=== PATIENT | female | born 1945 | race Caucasian/White ===

== ENCOUNTER 2020-09-07 02:08 | Outpatient (CLI) | payer MEDICARE, SELFPAY ==
[2020-09-07 18:25] LABS: SARS-CoV-2 RNA PCR Negative
== END 2020-09-07 02:09 | disposition home or self-care (01) ==
LOC: ANHCOVIDDT 02:08
PROVIDERS: Visit Provider Internal Medicine Gastroenterology
DX: Z01.812 Encounter for preprocedural laboratory examination (principal); Z20.828 Contact with and (suspected) exposure to other viral communicable diseases
CPT/HCPCS: 87635; C9803; U0003

== ENCOUNTER 2020-09-10 03:10 | Day surgery (SDC) | payer MEDICARE, SELFPAY ==
[2020-09-03 13:19] VITALS: BMI 21.4
[2020-09-10 08:45] VITALS: BP 135/68; PULSE 103; RESP 20; TEMP 36.9; O2SAT 100; BMI 20.9
[2020-09-10] MEDS: LACTATED RINGERS 1,000 ML 150 ML IV CONT (08:57)
--- NOTE | 2020-09-10 09:09 | WPDANESEPPF ---
Anes - Initial Pre Proc Eval Procedure: Operation Date: 09/10/20 09:30 Proposed Procedures p Screening Colonoscopy - Orlando Arreola MD Date/Time: 09/10/20 09:09 Surgeon: Orlando Arreola MD Pre Op Diagnosis: hx of colon polyps Patient Data Age: 75 Gender: F Height: 5 ft 3 in Weight: 53.7 kg Last Vital Signs Temp 98.4 F 09/10/20 08:45 Pulse 103 H 09/10/20 08:45 Resp 20 09/10/20 08:45 BP 135/68 09/10/20 08:45 Pulse Ox 100 09/10/20 08:45 Allergies Allergy/AdvReac Type Severity Reaction Status Date / Time brimonidine [From Combigan] Allergy Mild Itching Verified 09/10/20 08:44 timolol [From Combigan] Allergy Mild Itching Verified 09/10/20 08:44 Home Medications Medication Instructions Recorded Confirmed Type atorvastatin 10 mg PO DAILY 09/03/20 09/03/20 History calcium carbonate [Calcium 600] 600 mg PO DAILY 09/03/20 09/03/20 History dorzolamide 1 drp OPHTHALMIC (EYE) BID 09/03/20 09/03/20 History ergocalciferol (vitamin D2) 1,250 mcg PO DAILY 09/03/20 09/03/20 History hydrochlorothiazide 12.5 mg PO DAILY 09/03/20 09/03/20 History lisinopril 10 mg PO DAILY 09/03/20 09/03/20 History travoprost 1 drp OPHTHALMIC (EYE) HS 09/03/20 09/03/20 History Patient hx anesthesia problems: none Family hx anesthesia problems: none [facility] Past Medical History Medical History (Updated 09/10/20 @ 09:08 by Robin Forbes MD) Hyperlipidemia Hypertension Social History Social History Smoking packs per day: 0.5 Smoking cigarettes per day: 10.0 Years smoked: 5 Smoking pack-years: 2.50 Smoking status: Former smoker Tobacco type: cigarettes Alcohol intake: current Drinks per week: 7 Substance use: never Substance use type: does not use Spiritual care concerns: No Anes - Eval Final PreProcedure Day of Procedure 09/10/20 09:09 Patient weight: normal Heart: regular rate and rhythm Lungs: clear to auscultation Airway: Mallampati scale class II Neurological: alert and oriented Last oral intake: >/= 8 hours ASA classification: II Emergent: no Anesthetic plan: proceed Anesthesia type and monitoring: general GIVS and standard monitoring Informed Consent: The patient's anesthetic plan and its attendant risks and benefits were discussed with the patient/family/POA. Questions were solicited and answers provided to the satisfaction of the patient/family/POA.
--- NOTE | 2020-09-10 09:10 | WPDGICN ---
Assessment and Plan Assessment and plan (1) History of colon polyps: Code(s): Z86.010 - Personal history of colonic polyps Status: Acute Assessment and Plan: Patient has a history of colon polyps and for this reason presents for screening colonoscopy. Additionally she has had some constipation and hemorrhoidal pain. This will be evaluated at time of endoscopy. Fiber supplementation with Benefiber or Metamucil is advised. Milk a magnesia may be of some benefit should she need help with her bowel habits. Further recommendations will be given after endoscopy. GI Consult Note Consult date/time: 09/10/20 09:10 HPI: Angie Love is a 75 year old female Seen in evaluation at the request of Dr. Esteban Mcneil. Patient presents for screening colonoscopy. Patient has a personal history of colon polyps. Her last colonoscopy was 5 years ago at that time no polyps were identified. Since that time patient has had significant constipation particularly over the last 3-4 months. She has occasional rectal pain attributed to hemorrhoids. She denies any bleeding. Her weight has remained stable. Her family history is noncontributory. Review of Systems Review of Systems: All systems reviewed & are unremarkable except as noted in HPI and below PMFSH Past Medical History Medical History (Updated 09/10/20 @ 09:11 by Orlando Arreola MD) Hyperlipidemia Hypertension Social History Social History Smoking packs per day: 0.5 Smoking cigarettes per day: 10.0 Years smoked: 5 Smoking pack-years: 2.50 Smoking status: Former smoker Tobacco type: cigarettes Alcohol intake: current Drinks per week: 7 Substance use: never Substance use type: does not use Spiritual care concerns: No Meds Home Medications and Allergies Home Medications Medication Instructions Recorded Confirmed Type atorvastatin 10 mg PO DAILY 09/03/20 09/03/20 History calcium carbonate [Calcium 600] 600 mg PO DAILY 09/03/20 09/03/20 History dorzolamide 1 drp OPHTHALMIC (EYE) BID 09/03/20 09/03/20 History ergocalciferol (vitamin D2) 1,250 mcg PO DAILY 09/03/20 09/03/20 History hydrochlorothiazide 12.5 mg PO DAILY 09/03/20 09/03/20 History lisinopril 10 mg PO DAILY 09/03/20 09/03/20 History travoprost 1 drp OPHTHALMIC (EYE) HS 09/03/20 09/03/20 History Allergies Allergy/AdvReac Type Severity Reaction Status Date / Time brimonidine [From Combigan] Allergy Mild Itching Verified 09/10/20 08:44 timolol [From Combigan] Allergy Mild Itching Verified 09/10/20 08:44 Vital Signs Vital Signs - 24 hr 09/10/20 08:45 Temperature 98.4 F Pulse Rate 103 H Respiratory Rate 20 Blood Pressure 135/68 Pulse Oximetry 100 Exam Narrative: Exam Narrative: Physical exam reveals patient to be alert. Vital signs stable. HEENT exam unremarkable. Lungs are clear to auscultation and percussion. Heart is without murmur or extra sounds. Abdominal exam bowel sounds are present soft nontender with no organomegaly. Digital external rectal exam is normal.
[2020-09-10 10:12] VITALS: BP 106/59; PULSE 74; RESP 18; O2SAT 100
[2020-09-10 10:22] VITALS: BP 106/62; PULSE 68; RESP 20; O2SAT 100
[2020-09-10 10:32] VITALS: BP 109/61; PULSE 67; RESP 18; O2SAT 100
== END 2020-09-10 10:43 | disposition home or self-care (01) ==
PROVIDERS: PCP Internal Medicine; Visit Provider Internal Medicine Gastroenterology
PROC: 0DJD8ZZ Inspection of Lower Intestinal Tract, Via Natural or Artificial Opening Endoscopic (ICD-10-PCS; CPT 45378; principal; 2020-09-10 09:30)
DX: Z12.11 Encounter for screening for malignant neoplasm of colon (principal); D12.4 Benign neoplasm of descending colon; K57.30 Diverticulosis of large intestine without perforation or abscess without bleeding; K64.8 Other hemorrhoids; I10 Essential (primary) hypertension; E78.5 Hyperlipidemia, unspecified; Z87.891 Personal history of nicotine dependence
CPT/HCPCS: 45385; 88305; J2704; J7120

== ENCOUNTER 2024-04-13 09:02 | Outpatient (CLI) | payer MEDICARE, SELFPAY ==
[2024-04-13 20:02] LABS: Hematocrit 38.5 % (37.0-47.0); Hemoglobin 12.3 g/dL (12.0-15.0); Mean Corpuscular HGB Conc 31.9 g/dl (32-36); Mean Corpuscular Hemoglobin 30.8 pg (26-34); Mean Corpuscular Volume 96.3 fl (80-100); Mean Platelet Volume 9.7 fl (7.4-10.4); Platelet Count Result 300 k/mm3 (150-375); Red Cell Distribution Width 12.4 % (11.5-14.5); White Blood Count 5.6 K/mm3 (4.5-10.0)
[2024-04-13 20:34] LABS: Cholesterol 213 mg/dL (0-200); HDL Direct 73 mg/dL; Triglycerides 97 mg/dL (<150)
[2024-04-13 20:44] LABS: LDL Cholesterol Direct 110 mg/dL
[2024-04-18 10:32] LABS: Vitamin D 1,25 (OH)2 Total 23 pg/mL (18-72); Vitamin D2 1,25 (OH)2 <8 pg/mL; Vitamin D3 1,25 (OH)2 23 pg/mL
== END 2024-04-13 09:03 | disposition home or self-care (01) ==
LOC: ANHGOSHLAB 09:03
PROVIDERS: PCP Internal Medicine; Visit Provider Family Medicine
DX: E55.9 Vitamin D deficiency, unspecified (principal); E78.5 Hyperlipidemia, unspecified; I10 Essential (primary) hypertension; Z79.899 Other long term (current) drug therapy
CPT/HCPCS: 36415; 80061; 82652; 84443; 85027

== ENCOUNTER 2024-08-30 10:19 | Outpatient (CLI) | payer MEDICARE, SELFPAY ==
[2024-08-30 13:58] LABS: Hematocrit 39.3 % (37.0-47.0); Mean Corpuscular HGB Conc 33.1 g/dl (32-36); Mean Corpuscular Hemoglobin 31.8 pg (26-34); Mean Corpuscular Volume 96.1 fl (80-100); Mean Platelet Volume 9.9 fl (7.4-10.4); Platelet Count Result 276 k/mm3 (150-375); Red Blood Count 4.09 M/mm3 (4.2-5.4); Red Cell Distribution Width 12.2 % (11.5-14.5); White Blood Count 5.7 K/mm3 (4.5-10.0)
[2024-08-30 14:37] LABS: Alanine Aminotransferase 37 U/L (6-35); Albumin Level 4.7 g/dL (3.5-5.1); Alkaline Phosphatase 84 U/L (38-126); Anion Gap 9 mmol/L (4-12); Aspartate Amino Transferase 67 U/L (14-36); Bilirubin,Total 0.7 mg/dL (0.2-1.3); Blood Urea Nitrogen 22 mg/dL (7-17); Calcium 9.9 mg/dL (8.4-10.2); Carbon Dioxide 28 mmol/L (22-30); Chloride 102 mmol/L (98-107); Cholesterol 159 mg/dL (0-200); Estimated Glomerular Filt Rate > 60; Glucose 91 mg/dL (65-110); HDL Direct 66 mg/dL; Potassium 3.9 mmol/L (3.4-5.0); Sodium 139 mmol/L (137-145); Triglycerides 73 mg/dL (<150)
[2024-08-30 14:47] LABS: LDL Cholesterol Direct 58 mg/dL
[2024-09-03 09:42] LABS: Vitamin D 1,25 (OH)2 Total 23 pg/mL (18-72); Vitamin D2 1,25 (OH)2 <8 pg/mL; Vitamin D3 1,25 (OH)2 23 pg/mL
== END 2024-08-30 10:20 | disposition home or self-care (01) ==
PROVIDERS: PCP Family Medicine; Visit Provider Family Medicine
DX: E55.9 Vitamin D deficiency, unspecified (principal); E78.5 Hyperlipidemia, unspecified; I10 Essential (primary) hypertension; Z79.899 Other long term (current) drug therapy
CPT/HCPCS: 36415; 80053; 80061; 82652; 84443; 85027

== ENCOUNTER 2025-04-03 09:45 | Outpatient (CLI) | payer MEDICARE, SELFPAY ==
--- OUTSIDE RECORDS SUMMARY | 2025-04-03 09:52 | XMS_ITS | CONTINUITY OF CARE DOCUMENT ---
Author Name anjelica dejesus Address Unknown Organization [facility] Address [address] [place] [address] [address] [place] [address] Phone [phone] Care Team Providers Care Winter Intern Name Role Phone MAXIMO BULLARD MD Unavailable [phone] MAXIMO BULLARD MD Unavailable [phone] INSURANCE PROVIDERS Payer name Policy type / Coverage type [place] red constitution party ID [facility] Other [id number]
--- OUTSIDE RECORDS SUMMARY | 2025-04-03 09:52 | XMS_ITS | Continuity of Care Document ---
Author Organization [facility] Address [address] [place] [address] Phone Care Team Providers Care Diesel Technician Name Role Phone Joie Bro Unavailable Unavailable Advance Directives Directive Yes / No Effective Date File Name No Information Encounters Encounter Description Practice Location Reason(s) For Visit Diagnoses Date Provider Providers Copied on Encounter [facility], [address], [place], [place], [id number], [place] tel:[phone] [facility] No Information 3-200 0 Adali Salter. [address] , [address], [place], [address], [place]. tel:[phone] Family History Family Member Type Diagnosis Age At Onset No Information Payers Payer name Insurance type Covered constitution party ID Authoriza tion(s) No Information Social History Type Description Quantity Date Captured Comments Sex Female Smoking Status No Information Chief Complaint And Reason For Visit No Information Reason For Referral Reason For Referral No Information History Of Present Illness Encounter Date Complaint History Of Prese nt Illness No Information Functional Status Date Functional Assessmen t No Information Instructions Date Instruction Additional Infor mation No Information Assessments Type Assessment Date No Information Patient Care Teams Name Effective Dates (start - stop) Status Members No Information
--- OUTSIDE RECORDS SUMMARY | 2025-04-03 09:52 | XMS_ITS | Referral Summary ---
Author Organization [facility] [address] Address [address] [place] [address] Care Team Providers Care Wallpaper Remover Steam Name Role Phone Tyrell Hector MD Primary Care Provider [phone] Allergies No known active allergies Social History Tobacco Use Types Packs/Day Years Used Date Smoking Tobacco: Never Assessed Personal Safety Answer Date Recorded Getting School Help Needed Not on file 02/06 Comments Unknown Sex and Gender Information Value Date Recorded Sex Assigned at Not on file Legal Sex Female 9:15 AM CDT Gender Identity Not on file Sexual Orientation Not on file Plan of Treatment Not on file Insurance [facility] MEDICARE ADVANTAGE Care Teams Wallpaper Remover Steam Relationship Specialty Start Date End Date Tyrell Hector MD PCP - General Internal Medicine 04/20/19
--- OUTSIDE RECORDS SUMMARY | 2025-04-03 09:52 | XMS_ITS | Data Portability ---
Author Organization [place] - [employer], [facility] Address [address] [place] [address] Care Team Providers Care International Recruiter Name Role Phone CLIFFORD, JUSTO Referring Provider Assessment No assessment recorded. Plan of Treatment Reminders Order Date Submit Date Provider Last Modified By Organization Details Last Modified Time Details Appointments ESTABLISH ED OV 15 2025 01:15P M JUSTO HORTON, DO Not available Not available Not available Lab None recorded. Referral None recorded. Procedures None recorded. Surgeries None recorded. Imaging None recorded. Medication Orders None recorded. Patient TargetsNo targets recorded. Patient Instructions Encounter Date Encounter Id Patient Instructions Last Modified By Organization Details Last Modified Time 12/19/2024 [id number] high cholesterol : care instructions [email or web address] Not available 12/19/2024 15:52:33 We discussed you r health concerns and current medications: - You are currently taking atorvastatin 20 mg for high cholesterol and lisinopril 5 mg for high blood pressure. - You are also using Travatan Z eye drops for glaucoma, prescribed by your hand tapper [facility]. - You are taking a calcium supplement called AlgaeCal and vitamin D. We discussed your osteopenia: - I recommend discontinuing calcium supplements due to the potential risk of arterial hardening. Instead, aim to get 1,200 mg of calcium daily through your diet. I have provided a list of calcium-rich foods. - Continue taking vitamin D to support bone health. - Engage in weight-bearing exercises such as walking, pickleball, and weightlifting to strengthen your bones. You can use hand weights for exercises like bicep curls, tricep kickbacks, and squats. We discussed your recent liver function test results: - Your AST and ALT levels were mildly elevated. You have already stopped consuming alcohol and Tylenol as advised by your previous doctor. - You would like your primary care physician [facility] to monitor your liver function. We discussed your mild bladder incontinence: - Perform Kegel exercises to strengthen your pelvic floor muscles. If the issue worsens, we can refer you to a urogynecologist. We discussed your upcoming medical appointments: - You have a bone density scan scheduled for March [facility] - You will continue to see your primary care physician [facility] for your annual wellness visits and any necessary lab work. We will request your medical records from your primary care physician [facility] to ensure continuity of care. We will see you back in one year unless you need us sooner. If you have any acute issues, please call us. ana Not available 12/19/2024 15:51:20 Reason for Referral None Reported. Problems Name Problem SNOMED Code Status Onset Date Resolution Date Notes Provider Name and Address Organization Details Recorded Time Liver enzymes level above reference range 291480943 Active 025 NAKIA FOY APRN [address], [place], [address], [facility], [facility] 5 15:37:01 Problem Notes None recorded. Procedures Surgical History Date Name Laterality Status Provider Name and Address Organization Details Recorded Time 5 [facility] Older Adults (CO[facility]) completed NAKIA FOY APRN [address], [place], [address], [facility], [facility] 12/19/2024 15:41:51 4 Date of Last Mammogram completed Sandip Vásquez [facility] Physician [facility], [facility] 12/19/2024 15:00:52 Colonoscopy completed Sandip Vásquez [facility] Physician [facility], [facility] 12/19/2024 15:01:02 Tubal ligation completed Sandip Vásquez [facility], [facility] 12/19/2024 15:01:02 Mammogram Screening completed Sandip [facility], [facility] 12/19/2024 15:01:02 Imaging Results None recorded. Procedure Notes None recorded. Medical Equipment None Reported. Allergies Allergen ID Allergen Name Allergen Category Reaction Reaction Severity Criticality Documentation Date Start Date Code Code System Note Provider Name and Address Organization Details Recorded Time 9693439 adhesive tape environme nt,medica tion itching Not available Not available 12/19/2024 [id number] UNK [facility] Medications Name Sig Start Date Stop Date Status Note LastModified by Organization Details LastModified Time atorvastatin 20 mg tablet Take 1 tablet every day by oral route. active Not Available Not Available No t Available calcium 12/19 completed Not Available Not Available Not Available Lipitor 12/19 completed Not Available Not Available Not Available Vitamin D active Not Available Not Lilibeth ilable Not Available lisinopril 5mg active Not Available Not Av ailable Not Available Travatan Z 1 drop at night active Not Available Not Available No t Available Algae Based Calcium active Not Available Not Available Not Available Vitals Date Recorded Body weight Body mass index (BMI) Body height Pain severity - 0-10 verbal numeric rating [Score] - Reported Body temperature Oxygen saturation Oxygen saturation in Arterial blood by Pulse oximetry Heart rate Systolic blood pressure Diastolic blood pressure Provider Name and Address Organization Details Last Updated DateTime 99349.7 9 g 22.8 kg/m2 158.75 cm 0 98.7 [degF] 98 % 98 % 78 /min 118 mm[Hg] 64 mm[Hg] Sandip Vásquez [facility] 15:17:19 Social History Question Answer Notes LastModified by Organizat ion Details LastModified Time Tobacco Smoking Status [facility] 12/19/2024 15:00:59 Do You Have An Advance Directive? No Information not available 12/19/2024 Is Your Home Air Conditioned? Yes [email or web address] Information not available 12/19/2024 Do You Wear A Helmet When Biking? No Information not available 12/19/2024 Is Blood Transfusion Acceptable In An Emergency? Yes [email or web address] Information not available 12/19/2024 What Type Of Diet Are You Following? REGULAR [email or web address] Information not available 12/19/2024 What Is The Highest Grade Or Level Of School You Have Completed Or The Highest Degree You Have Received? [id number] [email or web address] Information not available 12/19/2024 Have There Been Any Changes To Your Family Or Social Situation? No [email or web address] Information not available 12/19/2024 When Did You Quit Smoking? 16+yearssincelsarina sánchez Information not available 12/19/2024 Are There Any Guns Present In Your Home? Yes [email or web address] Information not available 12/19/2024 Which Of Your Hands Is Dominant? Left [email or web address] Information not available 12/19/2024 Where Do You Live? SingleLevelHouse [email or web address] Information not available 12/19/2024 Do You Have A Medical Power Of Annual Giving Manager? No Information not available 12/19/2024 What Is Your Relationship Status? [email or web address] Information not available 12/19/2024 Are You Sexually Active? No [email or web address] Information not available 12/19/2024 Do You Have Smoke And Carbon Monoxide Detectors In Your Home? Yes [email or web address] Information not available 12/19/2024 Are You Passively Exposed To Smoke? No [email or web address] Information not available 12/19/2024 Are There Any Smokers In Your House? No Information not available 12/19/2024 Do You Have Any Dietary Restrictions? No [email or web address] Information not available 12/19/2024 How Many Days In The Past Year Have You Consumed 4 Or More Drinks? 0 [email or web address] Information not available 12/19/2024 Sex: Unknown Functional Status Question Answer Note LastModified by [employer] ion Details LastModified Time Do you use any illicit or recreational drugs? No [email or web address] Information not available 12/19/2024 Do you or have you ever used any other forms of tobacco or nicotine? No [email or web address] Information not available 12/19/2024 What is your level of alcohol consumption? Occasional Information not available 12/19/2024 Do you or have you ever used smokeless tobacco? Never used smokeless tobacco Information not available 12/19/2024 Are you currently employed? No Information not available 12/19/2024 Have you been exposed to chemicals or toxins? No Information not available 12/19/2024 Do you have transportation difficulties? No [email or web address] Information not available 12/19/2024 Are you able to care for yourself? Yes [email or web address] Information n ot available 12/19/2024 What is your exercise level? Moderate [email or web address] Information not available 12/19/2024 Mental Status None recorded. Family History Relationship Description Onset Age of this Age Resolved Age Notes LastModified by Organization Details LastModified Time Mother History of dementia [email or web address] Not available 2024 15:00:48 Mother Basal cell carcinoma of skin Not available 2024 15:00:48 Mother Hypertensive disorder Not available 2024 15:00:48 Mother Heart disease [email or web address] Not available 2024 15:00:48 Mother Seizure [email or web address] Not available 12/19/2024 15:00:48 Paternal Grandfather Heart disease [email or web address] Not available 2024 15:00:48 Medical History Condition Response High blood pressure Y Osteopenia/Osteoporosis Y Allergies (other than meds) Y High Cholesterol Y Colon Polyps Y Gynecological History Statement/Question Response Menses Monthly N STIs/STDs N If Post Menopausal, Age at Menopause 52 Date of Last Mammogram 04/11/2024 Age at First Child 22 Obstetrics History GPAL:G 0 P 0 0 0 0 Immunizations Vaccine Type Date Status Note Provider Nam e and Address Organization Details Recorded Time COVID-19, mRNA, LNP-S, PF, 100 mcg/0.5mL dose or 50 mcg/0.25mL dose 01/23/2021 [facility] 12/19/2024 08:47:03 COVID-19, mRNA, LNP-S, PF, 100 mcg/0.5mL dose or 50 mcg/0.25mL dose 02/20/2021 kylah escobar [facility], [facility] 12/19/2024 08:47:03 COVID-19, mRNA, LNP-S, PF, 100 mcg/0.5mL dose or 50 mcg/0.25mL dose 10/10/2021 [facility]obar [facility] 12/19/2024 08:47:03 Past Encounters Encounter ID Performer Location Encounter Start Date Encounter Closed Date Diagnosis/Indication Diagnosis SNOMED-CT Code Diagnosis ICD10 Code Diagnosis Note [id number] NAKIA FOY APRN MPAnnabella LAZO PCP [address] [place] [address] 12/19/2024 14:57:23 12/19/2024 15:54:32 Liver enzymes level above reference range 864611323 R74.8 - Previous lab results from August showed AST 67 U/L and ALT 37 U/L, both mildly elevated.- Patient has ceased alcohol consumptio n since August and does not take Tylenol.- No current lab work ordered; patient prefers to follow up with Dr. Virgie Helton for monitoring .- Educated patient on potential need for further testing, such as liver ultrasound , if enzyme levels do not normalize. Primary op en angle glaucoma of bilateral eyes 8684107662 H40.1130 - Patient is on Travatan Z (travopros t) eye drops.- Advised to continue current ophthalmol ogic care with her ophthalmol ogist [place].- Patient to notify if any changes in vision occur. Osteopenia 692428295 M85 .80 - Patient has a history of osteopenia and is not currently on Fosamax due to personal preference .- Educated patient on the importance of weight-zane ring exercises to promote bone health.- Provided a list of calcium-ri ch foods and advised against calcium supplement s due to potential arterial hardening. - Encouraged continuati on of Vitamin D supplement ation.- Next DEXA scan scheduled for March, as per the two-year interval. Essential hypertension 15428842 I10 - Patient is on lisinopril , presumed dose 5 mg daily, she does not have a written med list with her- Blood pressure today is 118/64 mmHg, indicating well-contr olled hypertensi on.- Advised patient to confirm the exact dosage of lisinopril and update via the patient portal. Current drinker 740032 F10.90 - Patient has ceased alcohol consumptio n since August.- No signs of alcohol dependence or withdrawal .- Educated patient on the risks of alcohol consumptio n and potential liver damage.- Advised to consider non-alcoho lic alternativ es Genuine st ress incontinence 57781962 N39.3 - Patient reports mild stress incontinen ce starting this summer.- Advised patient to perform Kegel exercises to strengthen the pelvic floor.- Discussed potential referral to a urogynecol ogist if symptoms worsen. Hyperlipidemia 75139801 E78.5 - Patient is on atorvastat in 20 mg daily.- Previous increase from 10 mg to 20 mg due to elevated cholestero l levels.- No current cholestero l levels available; will obtain records from Dr. Virgie Helton.- Advised patient to continue current medication and follow up with primary care for lipid monitoring . Health Concerns Section Related Observation LastModified by Organization Detai ls LastModified Time None Recorded Concern Status LastModified by Organization Details LastModified Time None Recorded Advance Directives Directive N: Payers Insurance Date Sequence Insurance Name Policy Number Policy Aviles Covered Member ID Aviles Member ID Guarantor Name 01/06/2025 1 [employer] (MEDICARE REPLACEMENT PPO) [id number] Hilary Pile [id number] Hilary Pile 01/06/2025 1 [employer] Hilary Pile [id number] Hilary Pile Notes Date Note Type Note Provider Name and Address Organization Details Recorded Time 12/19/2024 text/html The patient is a 79-year-old female with a history of HTN, HLD, glaucoma, and osteopenia, presenting to establish care. The patient is currently under the care of Dr. Virgie Helton in [place] and is seeking to establish care locally for the months she resides here. She is on atorvastatin 20 mg for HLD, which was increased from 10 mg due to elevated cholesterol levels. She is also on lisinopril 5 mg for HTN. For glaucoma, she uses Travatan Z eye drops and another unspecified eye drop. She is taking vitamin D and a calcium supplement called AlgaeCal for osteopenia, but has not started Fosamax as recommended by her PCP. She denies any history of fractures. She has lost 1 inch in height, now measuring 5'2.5 . She is due for a bone density scan in March. She reports mild bladder incontinence that began this summer, describing it as a messy flow. She denies any concerns about her vision and does not wear glasses or contacts. She recently got hearing aids this summer. She describes her physical activity level as a little more than moderate. She has a family history of dementia, with her mother being affected. She quit smoking approximately 50 years ago, but was exposed to secondhand smoke from her until 12 years ago. She reports elevated liver enzymes in her last blood work in August, with AST at 67 and ALT at 37. She was advised to stop consuming alcohol and Tylenol, although she denies taking Tylenol. She was drinking 2 glasses of wine daily but has since stopped in August without experiencing withdrawal symptoms. She prefers to have her labs monitored by her PCP in [place] QUALITY MEASURE QUESTIONNAIRE Has the Patient had a fracture in the last year No Has the Patient had a bone density testing performed before Yes Has the Patient been diagnosed as having osteoporosis No Imported from [facility] on 12/19/2024 NAKIA FOY, CARBON FURNACE OPERATOR HELPER [address], [place], [address], [facility], [facility] 12/19/2024 15:52:36 OBGyn Episode No OBEpisode recorded.
--- OUTSIDE RECORDS SUMMARY | 2025-04-03 09:52 | XMS_ITS | Clinical Summary ---
Author Organization [facility] Address [address] [place] [address] Care Team Providers Care Windows Mobile Developer Name Role Phone Esteban Fisher MD Primary Care Provider [phone] Source Comments [facility],non-[facility] Affiliates and Associated Physician Practices is amultiple site organization consisting of ambulatory clinics and hospital sitesin [place], [place], [place] and [place]. This disclosure is being madepursuant to the Care Everywhere program and may not contain all information available regarding this patient. Last updated 18.[facility] [place] Allergies Active Allergy Reactions Criticality Noted Date Comments Brimonidine Tartrate-Timolol Itching Low 015 Active Problems Problem Noted Date Diagnosed Date Basal cell carcinoma of skin 07/03/2015 Basal cell carcinoma of skin of other parts of f janelle 06/26/2015 Social History Tobacco Use Types Packs/Day Years Used Date Smoking Tobacco: Former Alcohol Use Standard Drinks/Week Comments Yes 0 (1 standard drink = 0.6 oz pur e alcohol) Comments Unknown Sex and Gender Information Value Date Recorded Sex Assigned at Not on file Legal Sex Female 5:38 PM [employer] Gender Identity Not on file Sexual Orientation Not on file Last Filed Vital Signs Vital Sign Reading Time Taken Comments Blood Pressure 140/80 07/03/2015 11:34 AM CDT Pulse 71 07/03/2015 11:34 AM CDT Temperature - - Respiratory Rate - - Oxygen Saturation 100% 07/03/2015 11:34 AM CDT Inhaled Oxygen Concentration - - Weight 58.1 kg (128 lb) 07/03/2015 8:33 AM CDT Height 160 cm (5' 3 ) 07/03/2015 8:33 AM CDT Body Mass Index 22.67 07/03/2015 8:33 AM CDT Plan of Treatment Health Maintenance Due Date Last Done Comments BONE DENSITY TESTING 1945 HEPATITIS C SCREENING 05/03/1965 DTAP/TDAP/TD VACCINES (1 - Tdap) 1966 PNEUMOCOCCAL VACCINE 50+ (1 of 1 - PCV) 1997 ZOSTER VACCINE (1 of 2) 1997 Respiratory Syncytial Virus (RSV) Vaccine Pt: or over 60 yrs (1 - 1-dose 75+ series) 2022 COVID-19 VACCINE ( - 2023-2 5 season) 2024 DEPRESSION SCREENING 11/23/2024 INFLUENZA VACCINE (Season Ended) 2025 HEPATITIS B VACCINE Aged Out No longe r eligible based on patient's age to complete this topic HIB VACCINE Aged Out No longer eligi ble based on patient's age to complete this topic HPV VACCINE Aged Out No longer eligi ble based on patient's age to complete this topic MENINGOCOCCAL (Group B) VACC INE SHARED DECISION-MAKING Aged Out No longer eligibl e based on patient's age to complete this topic MENINGOCOCCAL GROUPS A/C/Y/W VACCINE Aged Out No longer eligible b ased on patient's age to complete [place] [address] [facility] MANAGED MEDICARE ADV Care Teams Windows Mobile Developer Relationship Specialty Start Date End Date Esteban Fisher MD [facility] - General 02/28/14
--- OUTSIDE RECORDS SUMMARY | 2025-04-03 09:52 | XMS_ITS | Data Portability ---
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 Name Role Phone CATRACHITA HECTOR Primary Care Provider Assessment Encounter Date Assessment Date Assessment LastModified by Organization Details LastModified Time 04/02/2023 04/02/2023 Diagnosis in assessment plan have been discussed Medicare annual wellness is been completed Bone density ordered Continue current therapy Follow-up in 6 months [email or web address] Not available 04/04/2023 15:48:32 09/10/2023 09/10/2023 Will continue current therapy she is going to [place] for about 6 months she will make sure that she is taking enough calcium and vitamin-D pros and cons of Prolia pros and cons of treating and not treating osteopenia discussed progression to fractures that could be debilitating follow-up with me in 6 months advised to keep up-to-date on immunizations and screening [email or web address] Not available 09/10/2023 21:17:58 Plan of Treatment Reminders Order Date Submit Date Provider Last Modified By Organization Details Last Modified Time Details Appointments None recorded. Lab CMP, serum or plasma 2022 023 MITESH Not available 19:52:02 lipid panel, serum 2022 023 MITESH Not available 19:52:06 CBC w/ auto diff 2022 023 MITESH Not available 18:27:37 vitamin D, 25-hydroxy , total, serum 2022 023 [email or web address] Not available 4 18:33:01 CBC w/ auto diff 2022 023 MITESH Not available 3 12:42:12 lipid panel, serum 2022 023 MITESH Not available 3 13:02:23 CMP, serum or plasma 2022 023 MITESH Not available 3 13:02:29 Referral None recorded. Procedures None recorded. Surgeries None recorded. Imaging MAMMO, screening, digital, bilateral 2022 023 [email or web address] Not available 4 11:09:34 bone density 2022 023 [email or web address] Not available 3 15:39:59 Medication Orders None recorded. Patient TargetsNo targets recorded. Patient Instructions Encounter Date Encounter Id Patient Instructions Last Modified By Organization Details Last Modified Time 04/02/2023 [id number] dementia rating scale-2* [email or web address] Not available 04/02/2023 11:29:35 alcohol misuse* [email or web address] Not available 04/02/2023 11:29:35 depression screening* [email or web address] Not available 04/02/2023 11:29:35 multi-dimensiona l health assessment questionnaire* Not available 04/02/2023 11:29:35 Personalized [facility] lt Plan and Screening Recommendations Advance Directives - Do you have one? No You have indicated that you are capable of preparing your advance care directive Advance Directives - Do we have your advance directive on file in your health record? No, please bring in a copy at your earliest convenience Primary Prevention/Interven tion (prevents or decreases the chance of common diseases from occurring) Smoking Risk: Non Smoker Alcohol Misuse Screening: Positive Refer to attached alcohol cessation handout Refer to attached handout and prescription will be sent to pharmacy Decrease alcohol intake to 1 or less servings per day Continue to consider stopping alcohol and call if we can assist you Weight: Appropriate Physical activity: Appropriate physical activity Nutrition: Good Fall Risk (screened today): Low Vaccines Pneumococcal: Ordered Recommended today Influenza: Your next one in the fall of this year Chronic Disease Risks Stroke: Low Risk Intermediate Risk Heart Attack: Low risk Intermediate Risk Clogging of the Arteries: Low risk Intermediate Risk Diabetes: Low Risk I have no recommendations Secondary Prevention/Interven tion (detects treatable diseases before they may cause symptoms, disability, or ) Breast Cancer Screening with mammogram: Your next mammogram: Ordered Recommended today Cervical/Uterine/Ov douglas Cancer Screening: No screening necessary Osteoporosis Screening: Your next DEXA in: Ordered Recomme nded today Date Screening Last Performed: Colon Cancer Screening: Colonoscopy Date Screening Last Performed: Eye Disease Screening: Dementia Risk: Low I have no recommendations Depression Screening: Negative Not available 04/02/2023 10:58:38 Reason for Referral None Reported. Results Created Date Observation Date Name Description Value Unit Range Abnormal Flag Note LastModifiedBy Organization Detail LastModifiedTime 09/05/2009/05/2021 VITAM IN D 25-HY DROXY [id number] 43.4 NG/mL 30-100 Vitam in D Statu s: Defic ient: <20 ng/mL Insuf ficie nt: 20-29 ng/mL Suffi cient : 30-10 0 ng/mL Not Available [facility] (Lab) [address] [place], [address], 09/05/2021 19:47:25 09/05/2009/05/2021 LIPID PANEL cholesterol 169 mg/dL 140-19 9 NIH NEGRO NSUS RECOM MENDA TION FOR TANNA STERO L: ADULT CHILD LOW RISK: <200 <170 BORDE RLINE : <200- 239 ----- HIGH RISK: >240 >200 Not Available [facility] (Lab) [address] [place], [address], 09/05/2021 19:37:11 09/05/2009/05/2021 LIPID PANEL triglyceride s 82 mg/dL 0-150 NIH NEGRO NSUS REPOR T RECOM MENDA TION FOR TRIGL YCERI VIVEK: ADULT CHILD LOW RISK: <150 ----- BODER LINE: 150-1 99 ----- HIGH RISK: >200 ----- Not Available [facility] (Lab) [address] [place], [address], 09/05/2021 19:37:11 10/14/20 21 09/05/2021 LIPID PANEL HDL cholesterol 80 mg/dL 40- Not Available [facility] (Lab) [address] [place], [address], 09/05/2021 19:37:11 09/05/20 21 09/05/2021 LIPID PANEL LDL cholesterol, calculated 73 mg/dL 0-130 NIH NEGRO NSUS REPOR T RECOM MENDA TIONS FOR LDL: ADULT CHILD LOW RISK <130 <110 (OPTI MAL LDL) <100 ----- BORDE RLINE : 130-1 59 ----- HIGH RISK: >160 >130 A TRIGL YCERI DE RESUL T >400 INVAL IDATE S THE CALCU LATIO N FOR LDL FRACT IONAT ION - THE LDL RESUL T WILL NOT BE REPOR [place]. Not Available [facility] (Lab) [address] [place], [address], 09/05/2021 19:37:11 09/05/2009/05/2021 COMPR EHENS MENDY METAB OLIC PANEL sodium 140 mmol/ L 137-14 5 Not Available [facility] (Lab) [address] [place], [address], 09/05/2021 19:37:06 09/05/20 21 09/05/2021 COMPR EHENS MENDY METAB OLIC PANEL potassium 4.6 mmol/ L 3.5-5. 1 Not Available [facility] (Lab) [address] [place], [address], 09/05/2021 19:37:06 09/05/20 21 09/05/2021 COMPR EHENS MENDY METAB OLIC PANEL chloride 107 mmol/ L 98-107 Not Available [facility] (Lab) [address] [place], [address], 09/05/2021 19:37:06 09/05/20 21 09/05/2021 COMPR EHENS MENDY METAB OLIC PANEL carbon dioxide 25 mmol/ L 22-30 Not Available [facility] (Lab) [address] [place], [address], 09/05/2021 19:37:06 09/05/2009/05/2021 COMPR EHENS MENDY METAB OLIC PANEL agap 12.6 mmol/ L 14-22 low Not Available [facility] (Lab) [address] [place], [address], 09/05/2021 19:37:06 09/05/2009/05/2021 COMPR EHENS MENDY METAB OLIC PANEL glucose 90 mg/dL 70-99 Not Available [facility] (Lab) [address] [place], [address], 09/05/2021 19:37:06 09/05/2009/05/2021 COMPR EHENS MENDY METAB OLIC PANEL BUN 25 mg/dL 8-19 high Not Available [facility] (Lab) [address] [place], [address], 09/05/2021 19:37:06 09/05/2009/05/2021 COMPR EHENS MENDY METAB OLIC PANEL creatinine 0.83 mg/dL 0.66-1 .25 Not Available [facility] (Lab) [address] [place], [address], 09/05/2021 19:37:06 09/05/2009/05/2021 COMPR EHENS MENDY METAB OLIC PANEL GFR >60 Refer ence Range : [place] ge GFR Healt hy Adult : >60 mL/mi n/1.7 3 m2 Chron ic Kidne y Disea se: 15-60 mL/mi n/1.7 3 m2 Kidne y Failu re: <15/m L/min /1.73 m2 www.n iddk. nih.g ov MDRD study equat ion hasn' t been valid ated in child aissatou <18 yrs of age, pregn ant women , the elder ly >85 yrs of age, or in some racia l or ethni c subgr oups, suc as Hispa nics. Outsi de the valid ated rafael eters , estim ated GFR is less accur ate requi ring clini mercedes judgm ent on a case by case basis . Clini merceeds inter preta tion for other races and ages must be made by the clini brett . Futhe rmore , any of th e limit ation s with the use of serum creat inine relat ed to nutri sandrita l statu s o r medic ation usage hasn' t accou nted for the MDRD Study equat ion. For perso ns < 18 yrs of age, a pedia tric GFR calcu lator can be locat ed on the [facility] websi te: https ://aashish cervantes.kevin biggs.o jonny/pr ofess ional s/kdo qi/gf r_cal culat or Not Available [facility] (Lab) [address] [place], [address], 09/05/2021 19:37:06 09/05/2009/05/2021 COMPR EHENS MENDY METAB OLIC PANEL alkaline phosphatase 60 U/L 38-126 Not Available [facility] (Lab) [address] [place], [address], 09/05/2021 19:37:06 09/05/2009/05/2021 COMPR EHENS MENDY METAB OLIC PANEL alanine aminotransfe rase 27 U/L 0-35 Not Available [facility] (Lab) [address] [place], [address], 09/05/2021 19:37:06 09/05/20 21 09/05/2021 COMPR EHENS MENDY METAB OLIC PANEL aspartate aminotransfe rase 35 U/L 15-37 Not Available [facility] (Lab) [address] [place], [address], 09/05/2021 19:37:06 09/05/20 21 09/05/2021 COMPR EHENS MENDY METAB OLIC PANEL bilirubin, total 0.40 mg/dL 0.20-1 .30 Not Available [facility] (Lab) [address] [place], [address], 09/05/2021 19:37:06 09/05/20 21 09/05/2021 COMPR EHENS MENDY METAB OLIC PANEL calcium 10.1 mg/dL 8.4-10 .2 Not Available [facility] (Lab) [address] [place], [address], 09/05/2021 19:37:06 09/05/20 21 09/05/2021 COMPR EHENS MENDY METAB OLIC PANEL total protein 7.3 g/dL 6.3-8. 2 Not Available [facility] (Lab) [address] [place], [address], 09/05/2021 19:37:06 09/05/20 21 09/05/2021 COMPR EHENS MENDY METAB OLIC PANEL albumin 4.5 g/dL 3.0-4. 4 high Not Available [facility] (Lab) [address] [place], [address], 09/05/2021 19:37:06 09/05/20 21 09/05/2021 COMPR EHENS MENDY METAB OLIC PANEL globulin 2.8 g/dL 2.6-4. 2 Not Available [facility] (Lab) [address] [place], [address], 09/05/2021 19:37:06 09/05/20 21 09/05/2021 COMPR EHENS MENDY METAB OLIC PANEL A/G ratio 1.6 ratio 1.0-2. 0 Not Available [facility] (Lab) [address] [place], [address], 09/05/2021 19:37:06 09/05/20 21 09/05/2021 CBC/C OMPLE TE BLD COUNT W/DIF F white blood cells 5.6 x10'3 /uL 4.2-10 .8 Not Available [facility] (Lab) [address] [place], [address], 09/05/2021 13:07:00 09/05/2009/05/2021 CBC/C OMPLE TE BLD COUNT W/DIF F red blood cells 3.95 x10'6 /uL 3.80-5 .20 Not Available [facility] (Lab) [address] [place], [address], 09/05/2021 13:07:00 09/05/2009/05/2021 CBC/C OMPLE TE BLD COUNT W/DIF F hemoglobin 12.6 g/dL 12.0-1 5.6 Not Available [facility] (Lab) [address] [place], [address], 09/05/2021 13:07:00 09/05/2009/05/2021 CBC/C OMPLE TE BLD COUNT W/DIF F hematocrit 38.1 % 35.7-4 5.7 Not Available [facility] (Lab) [address] [place], [address], 09/05/2021 13:07:00 09/05/2009/05/2021 CBC/C OMPLE TE BLD COUNT W/DIF F mean red cell volume 96.5 fL 82.0-9 9.0 Not Available [facility] (Lab) [address] [place], [address], 09/05/2021 13:07:00 09/05/2009/05/2021 CBC/C OMPLE TE BLD COUNT W/DIF F mean red cell hemoglobin 31.9 pg 27.0-3 3.0 Not Available [facility] (Lab) [address] [place], [address], 09/05/2021 13:07:00 09/05/20 21 09/05/2021 CBC/C OMPLE TE BLD COUNT W/DIF F mean RBC HGB concentratio n 33.1 g/dL 31.0-3 6.0 Not Available [facility] (Lab[facility] [address] [facility] [place], [address], 09/05/2021 13:07:00 09/05/2009/05/2021 CBC/C OMPLE TE BLD COUNT W/DIF F red cell distribution width 12.6 % 11.8-1 5.5 Not Available [facility] (Lab) [address] [facility] [place], [address], 09/05/2021 13:07:00 09/05/2009/05/2021 CBC/C OMPLE TE BLD COUNT W/DIF F platelets 235 x10'3 /uL 150-40 0 Not Available [facility] (Lab) [address] [place], [address], 09/05/2021 13:07:00 09/05/2009/05/2021 CBC/C OMPLE TE BLD COUNT W/DIF F mean platelet volume 10.0 fL 9.0-12 .4 Not Available [facility] (Lab) [address] [place], [address], 09/05/2021 13:07:00 09/05/2009/05/2021 CBC/C OMPLE TE BLD COUNT W/DIF F neutrophils 44.6 % 39.0-7 2.0 Not Available [facility] (Lab) [address] [place], [address], 09/05/2021 13:07:00 09/05/2009/05/2021 CBC/C OMPLE TE BLD COUNT W/DIF F lymphocytes 39.7 % 16.0-4 7.0 Not Available [facility] (Lab) [address] [place], [address], 09/05/2021 13:07:00 09/05/2009/05/2021 CBC/C OMPLE TE BLD COUNT W/DIF F monocytes 8.3 % 5.0-12 .0 Not Available [facility] (Lab) [address] [place], [address], 09/05/2021 13:07:00 09/05/2009/05/2021 CBC/C OMPLE TE BLD COUNT W/DIF F eosinophils 5.6 % 1.0-7. 0 Not Available [facility] (Lab) [address] [place], [address], 09/05/2021 13:07:00 09/05/2009/05/2021 CBC/C OMPLE TE BLD COUNT W/DIF F basophils 1.4 % 0.0-2. 0 Not Available [facility] (Lab) [address] [place], [address], 09/05/2021 13:07:00 09/05/2009/05/2021 CBC/C OMPLE TE BLD COUNT W/DIF F immature granulocytes 0.4 % 0.00-0 .50 Not Available [facility] (Lab) [address] [place], [address], 09/05/2021 13:07:00 09/05/2009/05/2021 CBC/C OMPLE TE BLD COUNT W/DIF F neutrophils, absolute count 2.48 x10'3 /uL 1.5-8. 0 Not Available [facility] (Lab) [address] [place], [address], 09/05/2021 13:07:00 09/05/2009/05/2021 CBC/C OMPLE TE BLD COUNT W/DIF F lymphocytes, absolute count 2.21 x10'3 /uL 1.07-3 .43 Not Available [facility] (Lab) [address] [place], [address], 09/05/2021 13:07:00 09/05/2009/05/2021 CBC/C OMPLE TE BLD COUNT W/DIF F monocytes, absolute count 0.46 x10'3 /uL 0.29-0 .99 Not Available [facility] (Lab) [address] [place], [address], 09/05/2021 13:07:00 09/05/2009/05/2021 CBC/C OMPLE TE BLD COUNT W/DIF F eosinophils, absolute count 0.31 x10'3 /uL 0.02-0 .53 Not Available [facility] (Lab) [address] [place], [address], 09/05/2021 13:07:00 09/05/2009/05/2021 CBC/C OMPLE TE BLD COUNT W/DIF F basophils, absolute count 0.08 x10'3 /uL 0.01-0 .08 Not Available [facility] (Lab) [address] [place], [address], 09/05/2021 13:07:00 09/05/2009/05/2021 CBC/C OMPLE TE BLD COUNT W/DIF F immature granulocytes ,absolute 0.02 x10'3 /uL 0.00-0 .05 Not Available [facility] (Lab) [address] [place], [address], 09/05/2021 13:07:00 09/05/2009/05/2021 CBC/C OMPLE TE BLD COUNT W/DIF F nucleated red blood cells 0.0 % -0 Not Available [facility] (Lab) [address] [place], [address], 09/05/2021 13:07:00 09/05/2009/05/2021 CBC/C OMPLE TE BLD COUNT W/DIF F NRBC# 0.00 x10'3 /uL Not Available [facility] (Lab) [address] [place], [address], 09/05/2021 13:07:00 04/11/20 22 04/11/2022 VITAM IN D 25-HY DROXY [id number] 51.6 NG/mL 30-100 Vitam in D Statu s: Defic ient: <20 ng/mL Insuf ficie nt: 20-29 ng/mL Suffi cient : 30-10 0 ng/mL Not Available [facility] (Lab) [address] [place], [address], 04/11/2022 19:16:46 04/11/20 22 04/11/2022 COMPR EHENS MENDY METAB OLIC PANEL sodium 139 mmol/ L 137-14 5 Not Available [facility] (Lab) [address] [place], [address], 04/11/2022 18:57:20 04/11/20 22 04/11/2022 COMPR EHENS MENDY METAB OLIC PANEL potassium 3.9 mmol/ L 3.5-5. 1 Not Available [facility] (Lab) [address] [place], [address], 04/11/2022 18:57:20 04/11/20 22 04/11/2022 COMPR EHENS MENDY METAB OLIC PANEL chloride 105 mmol/ L 98-107 Not Available [facility] (Lab) [address] [place], [address], 04/11/2022 18:57:20 04/11/20 22 04/11/2022 COMPR EHENS MENDY METAB OLIC PANEL carbon dioxide 27 mmol/ L 22-30 Not Available [facility] (Lab) [address] [place], [address], 04/11/2022 18:57:20 04/11/20 22 04/11/2022 COMPR EHENS MENDY METAB OLIC PANEL anion gap 10.9 mmol/ L 14-22 low Not Available [facility] (Lab) [address] [place], [address], 04/11/2022 18:57:20 04/11/20 22 04/11/2022 COMPR EHENS MENDY METAB OLIC PANEL glucose 94 mg/dL 70-99 Not Available [facility] (Lab) [address] [place], [address], 04/11/2022 18:57:20 04/11/20 22 04/11/2022 COMPR EHENS MENDY METAB OLIC PANEL BUN 19 mg/dL 8-19 Not Available [facility] (Lab) [address] [place], [address], 04/11/2022 18:57:20 04/11/20 22 04/11/2022 COMPR EHENS MENDY METAB OLIC PANEL creatinine 0.82 mg/dL 0.66-1 .25 Not Available [facility] (Lab) [address] [place], [address], 04/11/2022 18:57:20 04/11/20 22 04/11/2022 COMPR EHENS MENDY METAB OLIC PANEL GFR >60 Refer ence Range : [place]os[place] ge GFR Healt hy Adult : >60 mL/mi n/1.7 3 m2 Chron ic Kidne y Disea se: 15-60 mL/mi n/1.7 3 m2 Kidne y Failu re: <15/m L/min /1.73 m2 www.n iddk. nih.g ov The MDRD study equat ion has not been valid ated in child aissatou <18 years of age; pregn ant women ; the elder ly >85 years of age; or in some racia l or ethni c subgr oups, such as Hispa nics. Outsi de the valid ated rafael eters , estim ated GFR is less accur ate, requi ring clini mercedes judgm ent on a case- by-ca se basis . Clini mercedes inter preta tion for other races and ages must be made by the clini brett. The MDRD study equat ion has not been valid ated for the evalu ation of serum creat inine relat ed to nutri sandrita l statu s or medic ation usage . For perso ns <18 years of age, a pedia tric GFR calcu lator is avail able on the [facility] websi te: https ://aashish biggs.o jonny/odette moonal s/kdo qi/gf r_cal culat or Not Available [facility] (Lab) [address] [place], [address], 04/11/2022 18:57:20 04/11/20 22 04/11/2022 COMPR EHENS MENDY METAB OLIC PANEL alkaline phosphatase 61 U/L 38-126 Not Available [facility] (Lab) [address] [place], [address], 04/11/2022 18:57:20 04/11/20 22 04/11/2022 COMPR EHENS MENDY METAB OLIC PANEL alanine aminotransfe rase 23 U/L 0-35 Not Available [facility] (Lab) [address] [place], [address], 04/11/2022 18:57:20 04/11/20 22 04/11/2022 COMPR EHENS MENDY METAB OLIC PANEL aspartate aminotransfe rase 35 U/L 15-37 Not Available [facility] (Lab) [address] [place], [address], 04/11/2022 18:57:20 04/11/20 22 04/11/2022 COMPR EHENS MENDY METAB OLIC PANEL bilirubin, total 0.50 mg/dL 0.20-1 .30 Not Available [facility] (Lab) [address] [place], [address], 04/11/2022 18:57:20 04/11/20 22 04/11/2022 COMPR EHENS MENDY METAB OLIC PANEL calcium 10.0 mg/dL 8.4-10 .2 Not Available [facility] (Lab) [address] [place], [address], 04/11/2022 18:57:20 04/11/20 22 04/11/2022 COMPR EHENS MENDY METAB OLIC PANEL total protein 7.3 g/dL 6.3-8. 2 Not Available [facility] (Lab) [address] [place], [address], 04/11/2022 18:57:20 04/11/20 22 04/11/2022 COMPR EHENS MENDY METAB OLIC PANEL albumin 4.4 g/dL 3.0-4. 4 Not Available [facility] (Lab) [address] [place], [address], 04/11/2022 18:57:20 04/11/20 22 04/11/2022 COMPR EHENS MENDY METAB OLIC PANEL globulin 2.9 g/dL 2.6-4. 2 Not Available [facility] (Lab) [address] [place], [address], 04/11/2022 18:57:20 04/11/20 22 04/11/2022 COMPR EHENS MENDY METAB OLIC PANEL A/G ratio 1.5 ratio 1.0-2. 0 Not Available [facility] (Lab) [address] [place], [address], 04/11/2022 18:57:20 04/11/20 22 04/11/2022 LIPID PANEL cholesterol 162 mg/dL 140-19 9 NIH NEGRO NSUS RECOM MENDA TION FOR TANNA STERO L: ADULT CHILD LOW RISK: <200 <170 BORDE RLINE : <200- 239 ----- HIGH RISK: >240 >200 Not Available [facility] (Lab) [address] [place], [address], 04/11/2022 18:57:15 04/11/20 22 04/11/2022 LIPID PANEL triglyceride s 48 mg/dL 0-150 NIH NEGRO NSUS REPOR T RECOM MENDA TION FOR TRIGL YCERI VIVEK: ADULT CHILD LOW RISK: <150 ----- BODER LINE: 150-1 99 ----- HIGH RISK: >200 ----- Not Available [facility] (Lab) [address] [place], [address], 04/11/2022 18:57:15 04/11/20 22 04/11/2022 LIPID PANEL HDL cholesterol 90 mg/dL 40- Not Available [facility] (Lab) [address] [place], [address], 04/11/2022 18:57:15 04/11/20 22 04/11/2022 LIPID PANEL LDL cholesterol, calculated 62 mg/dL 0-130 NIH NEGRO NSUS REPOR T RECOM MENDA TIONS FOR LDL: ADULT CHILD LOW RISK <130 <110 (OPTI MAL LDL) <100 ----- NESTORDE RLINE : 130-1 59 ----- HIGH RISK: >160 >130 A TRIGL YCERI DE RESUL T >400 INVAL IDATE S THE CALCU LATIO N FOR LDL FRACT IONAT ION - THE LDL RESUL T WILL NOT BE REPOR [place]. Not Available [facility] (Lab) [address] [place], [address], 04/11/2022 18:57:15 04/11/20 22 04/11/2022 CBC/C OMPLE TE BLD COUNT W/DIF F white blood cells 6.1 x10'3 /uL 4.2-10 .8 Not Available [facility] (Lab) [address] [place], [address], 04/11/2022 18:33:32 04/11/20 22 04/11/2022 CBC/C OMPLE TE BLD COUNT W/DIF F red blood cells 3.80 x10'6 /uL 3.80-5 .20 Not Available [facility] (Lab) [address] [place], [address], 04/11/2022 18:33:32 04/11/20 22 04/11/2022 CBC/C OMPLE TE BLD COUNT W/DIF F hemoglobin 11.9 g/dL 12.0-1 5.6 low Not Available [facility] (Lab) [address] [place], [address], 04/11/2022 18:33:32 04/11/20 22 04/11/2022 CBC/C OMPLE TE BLD COUNT W/DIF F hematocrit 36.3 % 35.7-4 5.7 Not Available [facility] (Lab) [address] [place], [address], 04/11/2022 18:33:32 04/11/20 22 04/11/2022 CBC/C OMPLE TE BLD COUNT W/DIF F mean red cell volume 95.5 fL 82.0-9 9.0 Not Available [facility] (Lab) [address] [place], [address], 04/11/2022 18:33:32 04/11/20 22 04/11/2022 CBC/C OMPLE TE BLD COUNT W/DIF F mean red cell hemoglobin 31.3 pg 27.0-3 3.0 Not Available [facility] (Lab) [address] [place], [address], 04/11/2022 18:33:32 04/11/20 22 04/11/2022 CBC/C OMPLE TE BLD COUNT W/DIF F mean RBC HGB concentratio n 32.8 g/dL 31.0-3 6.0 Not Available [facility] (Lab) [address] [place], [address], 04/11/2022 18:33:32 04/11/20 22 04/11/2022 CBC/C OMPLE TE BLD COUNT W/DIF F red cell distribution width 12.7 % 11.8-1 5.5 Not Available [facility] (Lab) [address] [place], [address], 04/11/2022 18:33:32 04/11/20 22 04/11/2022 CBC/C OMPLE TE BLD COUNT W/DIF F platelets 249 x10'3 /uL 150-40 0 Not Available [facility] (Lab) [address] [place], [address], 04/11/2022 18:33:32 04/11/20 22 04/11/2022 CBC/C OMPLE TE BLD COUNT W/DIF F mean platelet volume 9.9 fL 9.0-12 .4 Not Available [facility] (Lab) [address] [place], [address], 04/11/2022 18:33:32 04/11/20 22 04/11/2022 CBC/C OMPLE TE BLD COUNT W/DIF F neutrophils 46.6 % 39.0-7 2.0 Not Available [facility] (Lab) [address] [place], [address], 04/11/2022 18:33:32 04/11/20 22 04/11/2022 CBC/C OMPLE TE BLD COUNT W/DIF F lymphocytes 40.3 % 16.0-4 7.0 Not Available [facility] (Lab) [address] [place], [address], 04/11/2022 18:33:32 04/11/20 22 04/11/2022 CBC/C OMPLE TE BLD COUNT W/DIF F monocytes 7.9 % 5.0-12 .0 Not Available [facility] (Lab) [address] [place], [address], 04/11/2022 18:33:32 04/11/20 22 04/11/2022 CBC/C OMPLE TE BLD COUNT W/DIF F eosinophils 3.8 % 1.0-7. 0 Not Available [facility] (Lab) [address] [place], [address], 04/11/2022 18:33:32 04/11/20 22 04/11/2022 CBC/C OMPLE TE BLD COUNT W/DIF F basophils 1.2 % 0.0-2. 0 Not Available [facility] (Lab) [address] [place], [address], 04/11/2022 18:33:32 04/11/20 22 04/11/2022 CBC/C OMPLE TE BLD COUNT W/DIF F immature granulocytes 0.2 % 0.00-0 .50 Not Available [facility] (Lab) [address] [place], [address], 04/11/2022 18:33:32 04/11/20 22 04/11/2022 CBC/C OMPLE TE BLD COUNT W/DIF F neutrophils, absolute count 2.83 x10'3 /uL 1.5-8. 0 Not Available [facility] (Lab) [address] [place], [address], 04/11/2022 18:33:32 04/11/20 22 04/11/2022 CBC/C OMPLE TE BLD COUNT W/DIF F lymphocytes, absolute count 2.44 x10'3 /uL 1.07-3 .43 Not Available [facility] (Lab) [address] [place], [address], 04/11/2022 18:33:32 04/11/20 22 04/11/2022 CBC/C OMPLE TE BLD COUNT W/DIF F monocytes, absolute count 0.48 x10'3 /uL 0.29-0 .99 Not Available [facility] (Lab) [address] [place], [address], 04/11/2022 18:33:32 04/11/20 22 04/11/2022 CBC/C OMPLE TE BLD COUNT W/DIF F eosinophils, absolute count 0.23 x10'3 /uL 0.02-0 .53 Not Available [facility] (Lab) [address] [place], [address], 04/11/2022 18:33:32 04/11/20 22 04/11/2022 CBC/C OMPLE TE BLD COUNT W/DIF F basophils, absolute count 0.07 x10'3 /uL 0.01-0 .08 Not Available [facility] (Lab) [address] [place], [address], 04/11/2022 18:33:32 04/11/20 22 04/11/2022 CBC/C OMPLE TE BLD COUNT W/DIF F immature granulocytes ,absolute 0.01 x10'3 /uL 0.00-0 .05 Not Available [facility] (Lab) [address] [place], [address], 04/11/2022 18:33:32 04/11/20 22 04/11/2022 CBC/C OMPLE TE BLD COUNT W/DIF F nucleated red blood cells 0.0 % -0 Not Available [facility] (Lab) [address] [place], [address], 04/11/2022 18:33:32 04/11/20 22 04/11/2022 CBC/C OMPLE TE BLD COUNT W/DIF F NRBC# 0.00 x10'3 /uL Not Available [facility] (Lab) [address] [place], [address], 04/11/2022 18:33:32 09/11/20 22 09/11/2022 COMPR EHENS MENDY METAB OLIC PANEL sodium 142 mmol/ L 137-14 5 Not Available [facility] (Lab) [address] [place], [address], 09/11/2022 20:21:28 09/11/20 22 09/11/2022 COMPR EHENS MENDY METAB OLIC PANEL potassium 4.5 mmol/ L 3.5-5. 1 Not Available [facility] (Lab) [address] [place], [address], 09/11/2022 20:21:28 09/11/20 22 09/11/2022 COMPR EHENS MENDY METAB OLIC PANEL chloride 104 mmol/ L 98-107 Not Available [facility] (Lab) [address] [place], [address], 09/11/2022 20:21:28 09/11/20 22 09/11/2022 COMPR EHENS MENDY METAB OLIC PANEL carbon dioxide 30 mmol/ L 22-30 Not Available [facility] (Lab) [address] [place], [address], 09/11/2022 20:21:28 09/11/20 22 09/11/2022 COMPR EHENS MENDY METAB OLIC PANEL anion gap 12.5 mmol/ L 14-22 low Not Available [facility] (Lab) [address] [place], [address], 09/11/2022 20:21:28 09/11/20 22 09/11/2022 COMPR EHENS MENDY METAB OLIC PANEL glucose 101 mg/dL 70-99 high Not Available [facility] (Lab) [address] [place], [address], 09/11/2022 20:21:28 09/11/20 22 09/11/2022 COMPR EHENS MENDY METAB OLIC PANEL BUN 20 mg/dL 8-19 high Not Available [facility] (Lab) [address] [place], [address], 09/11/2022 20:21:28 09/11/20 22 09/11/2022 COMPR EHENS MENDY METAB OLIC PANEL creatinine 0.77 mg/dL 0.66-1 .25 Not Available [facility] (Lab) [address] [place], [address], 09/11/2022 20:21:28 09/11/20 22 09/11/2022 COMPR EHENS MENDY METAB OLIC PANEL GFR >60 Refer ence Range : Moosic ge GFR Healt hy Adult : >60 mL/mi n/1.7 3 m2 Chron ic Kidne y Disea se: 15-60 mL/mi n/1.7 3 m2 Kidne y Failu re: <15/m L/min /1.73 m2 www.n iddk. nih.g ov The MDRD study equat ion has not been valid ated in child aissatou <18 years of age; pregn ant women ; the elder ly >85 years of age; or in some racia l or ethni c subgr oups, such as Hispa nics. Outsi de the valid ated rafael eters , estim ated GFR is less accur ate, requi ring clini mercedes judgm ent on a case- by-ca se basis . Clini mercedes inter preta tion for other races and ages must be made by the clini brett. The MDRD study equat ion has not been valid ated for the evalu ation of serum creat inine relat ed to nutri sandrita l statu s or medic ation usage . For perso ns <18 years of age, a pedia tric GFR calcu lator is avail able on the [facility] websi te: https ://aashish w.kid kalyan.o rg/pr ofess ional s/kdo qi/gf r_cal culat or Not Available [facility] (Lab) [address] [place], [address], 09/11/2022 20:21:28 09/11/20 22 09/11/2022 COMPR EHENS MENDY METAB OLIC PANEL alkaline phosphatase 70 U/L 38-126 Not Available [facility] (Lab) [address] [place], [address], 09/11/2022 20:21:28 09/11/20 22 09/11/2022 COMPR EHENS MENDY METAB OLIC PANEL alanine aminotransfe rase 24 U/L 0-35 Not Available [facility] (Lab) [address] [place], [address], 09/11/2022 20:21:28 1009/11/2022 COMPR EHENS MENDY METAB OLIC PANEL aspartate aminotransfe rase 68 U/L 15-37 high Not Available [facility] (Lab) [address] [place], [address], 09/11/2022 20:21:28 09/11/20 22 09/11/2022 COMPR EHENS MENDY METAB OLIC PANEL bilirubin, total 0.60 mg/dL 0.20-1 .30 Not Available [facility] (Lab) [address] [place], [address], 09/11/2022 20:21:28 09/11/20 22 09/11/2022 COMPR EHENS MENDY METAB OLIC PANEL calcium 10.1 mg/dL 8.4-10 .2 Not Available [facility] (Lab) [address] [place], [address], 09/11/2022 20:21:28 09/11/20 22 09/11/2022 COMPR EHENS MENDY METAB OLIC PANEL total protein 8.2 g/dL 6.3-8. 2 Not Available [facility] (Lab) [address] [place], [address], 09/11/2022 20:21:28 09/11/20 22 09/11/2022 COMPR EHENS MENDY METAB OLIC PANEL albumin 4.8 g/dL 3.0-4. 4 high Not Available [facility] (Lab) [address] [place], [address], 09/11/2022 20:21:28 09/11/20 22 09/11/2022 COMPR EHENS MENDY METAB OLIC PANEL globulin 3.4 g/dL 2.6-4. 2 Not Available [facility] (Lab) [address] [place], [address], 09/11/2022 20:21:28 09/11/20 22 09/11/2022 COMPR EHENS MENDY METAB OLIC PANEL A/G ratio 1.4 ratio 1.0-2. 0 Not Available [facility] (Lab) [address] [place], [address], 09/11/2022 20:21:28 09/11/20 22 09/11/2022 LIPID PANEL cholesterol 182 mg/dL 140-19 9 NIH NEGRO NSUS RECOM MENDA TION FOR TANNA STERO L: ADULT CHILD LOW RISK: <200 <170 BORDE RLINE : <200- 239 ----- HIGH RISK: >240 >200 Not Available [facility] (Lab) [address] [place], [address], 09/11/2022 20:21:16 09/11/20 22 09/11/2022 LIPID PANEL triglyceride s 89 mg/dL 0-150 NIH NEGRO NSUS REPOR T RECOM MENDA TION FOR TRIGL YCERI VIVEK: ADULT CHILD LOW RISK: <150 ----- BODER LINE: 150-1 99 ----- HIGH RISK: >200 ----- Not Available [facility] (Lab) [address] [place], [address], 09/11/2022 20:21:16 09/11/20 22 09/11/2022 LIPID PANEL HDL cholesterol 72 mg/dL 40- Not Available [facility] (Lab) [address] [place], [address], 09/11/2022 20:21:16 09/11/20 22 09/11/2022 LIPID PANEL LDL cholesterol, calculated 92 mg/dL 0-130 NIH NEGRO NSUS REPOR T RECOM MENDA TIONS FOR LDL: ADULT CHILD LOW RISK <130 <110 (OPTI MAL LDL) <100 ----- BORDE RLINE : 130-1 59 ----- HIGH RISK: >160 >130 A TRIGL YCERI DE RESUL T >400 INVAL IDATE S THE CALCU LATIO N FOR LDL FRACT IONAT ION - THE LDL RESUL T WILL NOT BE REPOR [place]. Not Available [facility] (Lab) [address] [place], [address], 09/11/2022 20:21:16 09/11/20 22 09/11/2022 CBC/C OMPLE TE BLD COUNT W/DIF F eosinophils, absolute count 0.13 x10'3 /uL 0.02-0 .53 Not Available [facility] (Lab) [address] [place], [address], 09/11/2022 19:24:53 09/11/20 22 09/11/2022 CBC/C OMPLE TE BLD COUNT W/DIF F basophils, absolute count 0.08 x10'3 /uL 0.01-0 .08 Not Available [facility] (Lab) [address] [place], [address], 09/11/2022 19:24:53 09/11/20 22 09/11/2022 CBC/C OMPLE TE BLD COUNT W/DIF F immature granulocytes ,absolute 0.03 x10'3 /uL 0.00-0 .05 Not Available [facility] (Lab) [address] [place], [address], 09/11/2022 19:24:53 09/11/20 22 09/11/2022 CBC/C OMPLE TE BLD COUNT W/DIF F nucleated red blood cells 0.0 % -0 Not Available [facility] (Lab) [address] [place], [address], 09/11/2022 19:24:53 09/11/20 22 09/11/2022 CBC/C OMPLE TE BLD COUNT W/DIF F NRBC# 0.00 x10'3 /uL Not Available [facility] (Lab) [address] [place], [address], 09/11/2022 19:24:53 09/11/20 22 09/11/2022 CBC/C OMPLE TE BLD COUNT W/DIF F white blood cells 6.3 x10'3 /uL 4.2-10 .8 Not Available [facility] (Lab) [address] [place], [address], 09/11/2022 19:24:53 09/11/20 22 09/11/2022 CBC/C OMPLE TE BLD COUNT W/DIF F red blood cells 4.17 x10'6 /uL 3.80-5 .20 Not Available [facility] (Lab[facility] [address] [facility] [place], [address], 09/11/2022 19:24:53 09/11/20 22 09/11/2022 CBC/C OMPLE TE BLD COUNT W/DIF F hemoglobin 13.0 g/dL 12.0-1 5.6 Not Available [facility] (Lab) [address] [place], [address], 09/11/2022 19:24:53 09/11/2009/11/2022 CBC/C OMPLE TE BLD COUNT W/DIF F hematocrit 40.9 % 35.7-4 5.7 Not Available [facility] (Lab) [address] [place], [address], 09/11/2022 19:24:53 09/11/20 22 09/11/2022 CBC/C OMPLE TE BLD COUNT W/DIF F mean red cell volume 98.1 fL 82.0-9 9.0 Not Available [facility] (Lab) [address] [place], [address], 09/11/2022 19:24:53 09/11/20 22 09/11/2022 CBC/C OMPLE TE BLD COUNT W/DIF F mean red cell hemoglobin 31.2 pg 27.0-3 3.0 Not Available [facility] (Lab) [address] [place], [address], 09/11/2022 19:24:53 09/11/20 22 09/11/2022 CBC/C OMPLE TE BLD COUNT W/DIF F mean RBC HGB concentratio n 31.8 g/dL 31.0-3 6.0 Not Available [facility] (Lab) [address] [place], [address], 09/11/2022 19:24:53 09/11/20 22 09/11/2022 CBC/C OMPLE TE BLD COUNT W/DIF F red cell distribution width 12.4 % 11.8-1 5.5 Not Available [facility] (Lab) [address] [place], [address], 09/11/2022 19:24:53 09/11/2009/11/2022 CBC/C OMPLE TE BLD COUNT W/DIF F platelets 264 x10'3 /uL 150-40 0 Not Available [facility] (Lab) [address] [place], [address], 09/11/2022 19:24:53 09/11/2009/11/2022 CBC/C OMPLE TE BLD COUNT W/DIF F mean platelet volume 10.2 fL 9.0-12 .4 Not Available [facility] (Lab) [address] [place], [address], 09/11/2022 19:24:53 09/11/20 22 09/11/2022 CBC/C OMPLE TE BLD COUNT W/DIF F neutrophils 60.1 % 39.0-7 2.0 Not Available [facility] (Lab) [address] [place], [address], 09/11/2022 19:24:53 09/11/20 22 09/11/2022 CBC/C OMPLE TE BLD COUNT W/DIF F lymphocytes 28.0 % 16.0-4 7.0 Not Available [facility] (Lab) [address] [place], [address], 09/11/2022 19:24:53 09/11/20 22 09/11/2022 CBC/C OMPLE TE BLD COUNT W/DIF F monocytes 8.0 % 5.0-12 .0 Not Available [facility] (Lab) [address] [place], [address], 09/11/2022 19:24:53 09/11/2009/11/2022 CBC/C OMPLE TE BLD COUNT W/DIF F eosinophils 2.1 % 1.0-7. 0 Not Available [facility] (Lab) [address] [place], [address], 09/11/2022 19:24:53 09/11/2009/11/2022 CBC/C OMPLE TE BLD COUNT W/DIF F basophils 1.3 % 0.0-2. 0 Not Available [facility] (Lab) [address] [place], [address], 09/11/2022 19:24:53 09/11/2009/11/2022 CBC/C OMPLE TE BLD COUNT W/DIF F immature granulocytes 0.5 % 0.00-0 .50 Not Available [facility] (Lab) [address] [place], [address], 09/11/2022 19:24:53 09/11/2009/11/2022 CBC/C OMPLE TE BLD COUNT W/DIF F neutrophils, absolute count 3.76 x10'3 /uL 1.5-8. 0 Not Available [facility] (Lab) [address] [place], [address], 09/11/2022 19:24:53 09/11/2009/11/2022 CBC/C OMPLE TE BLD COUNT W/DIF F lymphocytes, absolute count 1.75 x10'3 /uL 1.07-3 .43 Not Available [facility] (Lab) [address] [place], [address], 09/11/2022 19:24:53 09/11/2009/11/2022 CBC/C OMPLE TE BLD COUNT W/DIF F monocytes, absolute count 0.50 x10'3 /uL 0.29-0 .99 Not Available [facility] (Lab) [address] [place], [address], 09/11/2022 19:24:53 04/02/20 23 04/02/2023 CBC/C OMPLE TE BLD COUNT W/DIF F white blood cells 6.7 x10'3 /uL 4.2-10 .8 Not Available [facility] (Lab) [address] [facility] [place], [address], 04/02/2023 12:42:12 04/02/20 23 04/02/2023 CBC/C OMPLE TE BLD COUNT W/DIF F red blood cells 4.15 x10'6 /uL 3.80-5 .20 Not Available [facility] (Lab) [address] [place], [address], 04/02/2023 12:42:12 04/02/20 23 04/02/2023 CBC/C OMPLE TE BLD COUNT W/DIF F hemoglobin 12.9 g/dL 12.0-1 5.6 Not Available [facility] (Lab) [address] [facility] [place], [address], 04/02/2023 12:42:12 04/02/20 23 04/02/2023 CBC/C OMPLE TE BLD COUNT W/DIF F hematocrit 39.7 % 35.7-4 5.7 Not Available [facility] (Lab) [address] [place], [address], 04/02/2023 12:42:12 04/02/20 23 04/02/2023 CBC/C OMPLE TE BLD COUNT W/DIF F mean red cell volume 95.7 fL 82.0-9 9.0 Not Available [facility] (Lab) [address] [place], [address], 04/02/2023 12:42:12 04/02/20 23 04/02/2023 CBC/C OMPLE TE BLD COUNT W/DIF F mean red cell hemoglobin 31.1 pg 27.0-3 3.0 Not Available [facility] (Lab) [address] [place], [address], 04/02/2023 12:42:12 04/02/20 23 04/02/2023 CBC/C OMPLE TE BLD COUNT W/DIF F mean RBC HGB concentratio n 32.5 g/dL 31.0-3 6.0 Not Available [facility] (Lab) [address] [place], [address], 04/02/2023 12:42:12 04/02/20 23 04/02/2023 CBC/C OMPLE TE BLD COUNT W/DIF F red cell distribution width 12.6 % 11.8-1 5.5 Not Available [facility] (Lab) [address] [place], [address], 04/02/2023 12:42:12 04/02/2004/02/2023 CBC/C OMPLE TE BLD COUNT W/DIF F platelets 261 x10'3 /uL 150-40 0 Not Available [facility] (Lab) [address] [place], [address], 04/02/2023 12:42:12 04/02/2004/02/2023 CBC/C OMPLE TE BLD COUNT W/DIF F mean platelet volume 9.4 fL 9.0-12 .4 Not Available [facility] (Lab) [address] [place], [address], 04/02/2023 12:42:12 04/02/20 23 04/02/2023 CBC/C OMPLE TE BLD COUNT W/DIF F neutrophils 46.7 % 39.0-7 2.0 Not Available [facility] (Lab) [address] [place], [address], 04/02/2023 12:42:12 04/02/20 23 04/02/2023 CBC/C OMPLE TE BLD COUNT W/DIF F lymphocytes 39.5 % 16.0-4 7.0 Not Available [facility] (Lab) [address] [place], [address], 04/02/2023 12:42:12 04/02/2004/02/2023 CBC/C OMPLE TE BLD COUNT W/DIF F monocytes 7.7 % 5.0-12 .0 Not Available [facility] (Lab) [address] [place], [address], 04/02/2023 12:42:12 04/02/20 23 04/02/2023 CBC/C OMPLE TE BLD COUNT W/DIF F eosinophils 4.5 % 1.0-7. 0 Not Available [facility] (Lab) [address] [place], [address], 04/02/2023 12:42:12 04/02/2004/02/2023 CBC/C OMPLE TE BLD COUNT W/DIF F basophils 1.3 % 0.0-2. 0 Not Available [facility] (Lab) [address] [place], [address], 04/02/2023 12:42:12 04/02/2004/02/2023 CBC/C OMPLE TE BLD COUNT W/DIF F immature granulocytes 0.3 % 0.00-0 .50 Not Available [facility] (Lab) [address] [place], [address], 04/02/2023 12:42:12 04/02/2004/02/2023 CBC/C OMPLE TE BLD COUNT W/DIF F neutrophils, absolute count 3.14 x10'3 /uL 1.5-8. 0 Not Available [facility] (Lab) [address] [place], [address], 04/02/2023 12:42:12 04/02/2004/02/2023 CBC/C OMPLE TE BLD COUNT W/DIF F lymphocytes, absolute count 2.66 x10'3 /uL 1.07-3 .43 Not Available [facility] (Lab) [address] [facility] [place], [address], 04/02/2023 12:42:12 04/02/20 23 04/02/2023 CBC/C OMPLE TE BLD COUNT W/DIF F monocytes, absolute count 0.52 x10'3 /uL 0.29-0 .99 Not Available [facility] (Lab) [address] [place], [address], 04/02/2023 12:42:12 04/02/20 23 04/02/2023 CBC/C OMPLE TE BLD COUNT W/DIF F eosinophils, absolute count 0.30 x10'3 /uL 0.02-0 .53 Not Available [facility] (Lab) [address] [place], [address], 04/02/2023 12:42:12 04/02/20 23 04/02/2023 CBC/C OMPLE TE BLD COUNT W/DIF F basophils, absolute count 0.09 x10'3 /uL 0.01-0 .08 high Not Available [facility] (Lab) [address] [place], [address], 04/02/2023 12:42:12 04/02/20 23 04/02/2023 CBC/C OMPLE TE BLD COUNT W/DIF F immature granulocytes ,absolute 0.02 x10'3 /uL 0.00-0 .05 Not Available [facility] (Lab) [address] [place], [address], 04/02/2023 12:42:12 04/02/20 23 04/02/2023 CBC/C OMPLE TE BLD COUNT W/DIF F nucleated red blood cells 0.0 % -0 Not Available [facility] (Lab) [address] [place], [address], 04/02/2023 12:42:12 04/02/20 23 04/02/2023 CBC/C OMPLE TE BLD COUNT W/DIF F NRBC# 0.00 x10'3 /uL Not Available [facility] (Lab) [address] [place] [address], [address], 04/02/2023 12:42:12 04/02/2004/02/2023 LIPID PANEL cholesterol 174 mg/dL 140-19 9 NIH NEGRO NSUS RECOM MENDA TION FOR TANNA STERO L: ADULT CHILD LOW RISK: <200 <170 BORDE RLINE : <200- 239 ----- HIGH RISK: >240 >200 Not Available [facility] (Lab) [address] [place], [address], 04/02/2023 13:02:23 04/02/20 23 04/02/2023 LIPID PANEL triglyceride s 62 mg/dL 0-150 NIH NEGRO NSUS REPOR T RECOM MENDA TION FOR TRIGL YCERI VIVEK: ADULT CHILD LOW RISK: <150 ----- BODER LINE: 150-1 99 ----- HIGH RISK: >200 ----- Not Available [facility] (Lab) [address] [place], [address], 04/02/2023 13:02:23 04/02/20 23 04/02/2023 LIPID PANEL HDL cholesterol 91 mg/dL 40- Not Available [facility] (Lab) [address] [place] [address], [address], 04/02/2023 13:02:23 04/02/20 23 04/02/2023 LIPID PANEL LDL cholesterol, calculated 71 mg/dL 0-130 NIH NEGRO NSUS REPOR T RECOM MENDA TIONS FOR LDL: ADULT CHILD LOW RISK <130 <110 (OPTI MAL LDL) <100 ----- JESSICA RLINE : 130-1 59 ----- HIGH RISK: >160 >130 A TRIGL YCERI DE RESUL T >400 INVAL IDATE S THE CALCU LATIO N FOR LDL FRACT IONAT ION - THE LDL RESUL T WILL NOT BE REPOR [place]. Not Available [facility] (Lab) [address] [place], [address], 04/02/2023 13:02:23 04/02/20 23 04/02/2023 COMPR EHENS MENDY METAB OLIC PANEL sodium 138 mmol/ L 137-14 5 Not Available [facility] (Lab) [address] [place], [address], 04/02/2023 13:02:29 04/02/20 23 04/02/2023 COMPR EHENS MENDY METAB OLIC PANEL potassium 4.6 mmol/ L 3.5-5. 1 Not Available [facility] (Lab) [address] [place], [address], 04/02/2023 13:02:29 04/02/20 23 04/02/2023 COMPR EHENS MENDY METAB OLIC PANEL chloride 104 mmol/ L 98-107 Not Available [facility] (Lab) [address] [place], [address], 04/02/2023 13:02:29 04/02/20 23 04/02/2023 COMPR EHENS MENDY METAB OLIC PANEL carbon dioxide 25 mmol/ L 22-30 Not Available [facility] (Lab) [address] [place], [address], 04/02/2023 13:02:29 04/02/20 23 04/02/2023 COMPR EHENS MENDY METAB OLIC PANEL anion gap 13.6 mmol/ L 14-22 low Not Available [facility] (Lab) [address] [place], [address], 04/02/2023 13:02:04/02/2004/02/2023 COMPR EHENS MENDY METAB OLIC PANEL glucose 107 mg/dL 70-99 high Not Available [facility] (Lab) [address] [place], [address], 04/02/2023 13:02:29 04/02/20 23 04/02/2023 COMPR EHENS MENDY METAB OLIC PANEL BUN 23 mg/dL 8-19 high Not Available [facility] (Lab) [address] [place], [address], 04/02/2023 13:02:29 04/02/20 23 04/02/2023 COMPR EHENS MENDY METAB OLIC PANEL creatinine 0.81 mg/dL 0.66-1 .25 Not Available [facility] (Lab) [address] [place], [address], 04/02/2023 13:02:29 04/02/20 23 04/02/2023 COMPR EHENS MENDY METAB OLIC PANEL GFR >60 Refer ence Range : Moosic ge GFR Healt hy Adult : >60 mL/mi n/1.7 3 m2 Chron ic Kidne y Disea se: 15-60 mL/mi n/1.7 3 m2 Kidne y Failu re: <15/m L/min /1.73 m2 www.n iddk. nih.g ov The MDRD study equat ion has not been valid ated in child aissatou <18 years of age; pregn ant women ; the elder ly >85 years of age; or in some racia l or ethni c subgr oups, such as Hisok nics. Outsi de the valid ated rafael eters , estim ated GFR is less accur ate, requi ring clini mercedes judgm ent on a case- by-ca se basis . Clini mercedes inter preta tion for other races and ages must be made by the clini brett. The MDRD study equat ion has not been valid ated for the evalu ation of serum creat inine relat ed to nutri sandrita l statu s or medic ation usage . For perso ns <18 years of age, a pedia tric GFR calcu lator is avail able on the F websi te: https ://aashish w.kevin biggs.o jonny/pr ofess ional s/kdo qi/gf r_cal culat or Not Available [facility] (Lab) [address] [place], [address], 04/02/2023 13:02:29 04/02/20 23 04/02/2023 COMPR EHENS MENDY METAB OLIC PANEL alkaline phosphatase 62 U/L 38-126 Not Available [facility] (Lab) [address] [place], [address], 04/02/2023 13:02:29 04/02/20 23 04/02/2023 COMPR EHENS MENDY METAB OLIC PANEL alanine aminotransfe rase 26 U/L 0-35 Not Available [facility] (Lab) [address] [place], [address], 04/02/2023 13:02:29 04/02/20 23 04/02/2023 COMPR EHENS MENDY METAB OLIC PANEL aspartate aminotransfe rase 35 U/L 15-37 Not Available [facility] (Lab) [address] [place], [address], 04/02/2023 13:02:29 04/02/20 23 04/02/2023 COMPR EHENS MENDY METAB OLIC PANEL bilirubin, total 0.40 mg/dL 0.20-1 .30 Not Available [facility] (Lab) [address] [place], [address], 04/02/2023 13:02:29 04/02/20 23 04/02/2023 COMPR EHENS MENDY METAB OLIC PANEL calcium 9.9 mg/dL 8.4-10 .2 Not Available [facility] (Lab) [address] [place], [address], 04/02/2023 13:02:29 04/02/20 23 04/02/2023 COMPR EHENS MENDY METAB OLIC PANEL total protein 7.5 g/dL 6.3-8. 2 Not Available [facility] (Lab) [address] [place], [address], 04/02/2023 13:02:29 04/02/20 23 04/02/2023 COMPR EHENS MENDY METAB OLIC PANEL albumin 4.6 g/dL 3.0-4. 4 high Not Available [facility] (Lab) [address] [place], [address], 04/02/2023 13:02:29 04/02/20 23 04/02/2023 COMPR EHENS MENDY METAB OLIC PANEL globulin 2.9 g/dL 2.6-4. 2 Not Available [facility] (Lab) [address] [place], [address], 04/02/2023 13:02:29 04/02/20 23 04/02/2023 COMPR EHENS MENDY METAB OLIC PANEL A/G ratio 1.6 ratio 1.0-2. 0 Not Available [facility] (Lab) [address] [place], [address], 04/02/2023 13:02:29 09/10/20 23 09/10/2023 CBC/C OMPLE TE BLD COUNT W/DIF F white blood cells 6.4 x10'3 /uL 4.2-10 .8 Not Available [facility] (Lab) [address] [place], [address], 09/10/2023 18:27:37 09/10/20 23 09/10/2023 CBC/C OMPLE TE BLD COUNT W/DIF F red blood cells 3.77 x10'6 /uL 3.80-5 .20 low Not Available [facility] (Lab) [address] [place], [address], 09/10/2023 18:27:37 09/10/2009/10/2023 CBC/C OMPLE TE BLD COUNT W/DIF F hemoglobin 12.1 g/dL 12.0-1 5.6 Not Available [facility] (Lab) [address] [place], [address], 09/10/2023 18:27:37 09/10/2009/10/2023 CBC/C OMPLE TE BLD COUNT W/DIF F hematocrit 36.5 % 35.7-4 5.7 Not Available [facility] (Lab) [address] [place], [address], 09/10/2023 18:27:37 09/10/2009/10/2023 CBC/C OMPLE TE BLD COUNT W/DIF F mean red cell volume 96.8 fL 82.0-9 9.0 Not Available [facility] (Lab) [address] [place], [address], 09/10/2023 18:27:37 09/10/2009/10/2023 CBC/C OMPLE TE BLD COUNT W/DIF F mean red cell hemoglobin 32.1 pg 27.0-3 3.0 Not Available [facility] (Lab) [address] [place], [address], 09/10/2023 18:27:37 09/10/2009/10/2023 CBC/C OMPLE TE BLD COUNT W/DIF F mean RBC HGB concentratio n 33.2 g/dL 31.0-3 6.0 Not Available [facility] (Lab) [address] [place], [address], 09/10/2023 18:27:37 09/10/2009/10/2023 CBC/C OMPLE TE BLD COUNT W/DIF F red cell distribution width 12.4 % 11.8-1 5.5 Not Available [facility] (Lab) [address] [place], [address], 09/10/2023 18:27:37 09/10/2009/10/2023 CBC/C OMPLE TE BLD COUNT W/DIF F platelets 274 x10'3 /uL 150-40 0 Not Available [facility] (Lab) [address] [place], [address], 09/10/2023 18:27:37 09/10/2009/10/2023 CBC/C OMPLE TE BLD COUNT W/DIF F mean platelet volume 10.3 fL 9.0-12 .4 Not Available [facility] (Lab) [address] [place], [address], 09/10/2023 18:27:37 09/10/2009/10/2023 CBC/C OMPLE TE BLD COUNT W/DIF F neutrophils 50.7 % 39.0-7 2.0 Not Available [facility] (Lab) [address] [place], [address], 09/10/2023 18:27:37 09/10/2009/10/2023 CBC/C OMPLE TE BLD COUNT W/DIF F lymphocytes 37.0 % 16.0-4 7.0 Not Available [facility] (Lab) [address] [place], [address], 09/10/2023 18:27:37 09/10/2009/10/2023 CBC/C OMPLE TE BLD COUNT W/DIF F monocytes 8.3 % 5.0-12 .0 Not Available [facility] (Lab) [address] [place], [address], 09/10/2023 18:27:37 09/10/2009/10/2023 CBC/C OMPLE TE BLD COUNT W/DIF F eosinophils 2.7 % 1.0-7. 0 Not Available [facility] (Lab) [address] [place], [address], 09/10/2023 18:27:37 09/10/2009/10/2023 CBC/C OMPLE TE BLD COUNT W/DIF F basophils 1.1 % 0.0-2. 0 Not Available [facility] (Lab) [address] [place], [address], 09/10/2023 18:27:37 09/10/2009/10/2023 CBC/C OMPLE TE BLD COUNT W/DIF F immature granulocytes 0.2 % 0.00-0 .50 Not Available [facility] (Lab) [address] [place], [address], 09/10/2023 18:27:37 09/10/2009/10/2023 CBC/C OMPLE TE BLD COUNT W/DIF F neutrophils, absolute count 3.25 x10'3 /uL 1.5-8. 0 Not Available [facility] (Lab) [address] [place], [address], 09/10/2023 18:27:37 09/10/2009/10/2023 CBC/C OMPLE TE BLD COUNT W/DIF F lymphocytes, absolute count 2.37 x10'3 /uL 1.07-3 .43 Not Available [facility] (Lab) [address] [place], [address], 09/10/2023 18:27:37 09/10/2009/10/2023 CBC/C OMPLE TE BLD COUNT W/DIF F monocytes, absolute count 0.53 x10'3 /uL 0.29-0 .99 Not Available [facility] (Lab) [address] [place], [address], 09/10/2023 18:27:37 09/10/2009/10/2023 CBC/C OMPLE TE BLD COUNT W/DIF F eosinophils, absolute count 0.17 x10'3 /uL 0.02-0 .53 Not Available [facility] (Lab) [address] [place], [address], 09/10/2023 18:27:37 09/10/2009/10/2023 CBC/C OMPLE TE BLD COUNT W/DIF F basophils, absolute count 0.07 x10'3 /uL 0.01-0 .08 Not Available [facility] (Lab) [address] [place], [address], 09/10/2023 18:27:37 09/10/2009/10/2023 CBC/C OMPLE TE BLD COUNT W/DIF F immature granulocytes ,absolute 0.01 x10'3 /uL 0.00-0 .05 Not Available [facility] (Lab) [address] [place], [address], 09/10/2023 18:27:37 09/10/2009/10/2023 CBC/C OMPLE TE BLD COUNT W/DIF F nucleated red blood cells 0.0 % -0 Not Available [facility] (Lab) [address] [place], [address], 09/10/2023 18:27:37 09/10/2009/10/2023 CBC/C OMPLE TE BLD COUNT W/DIF F NRBC# 0.00 x10'3 /uL Not Available [facility] (Lab) [address] [place], [address], 09/10/2023 18:27:37 09/10/2009/10/2023 COMPR EHENS MENDY METAB OLIC PANEL sodium 139 mmol/ L 137-14 5 Not Available [facility] (Lab) [address] [place], [address], 09/10/2023 19:52:02 09/10/2009/10/2023 COMPR EHENS MENDY METAB OLIC PANEL potassium 3.9 mmol/ L 3.5-5. 1 Not Available [facility] (Lab) [address] [place], [address], 09/10/2023 19:52:02 09/10/2009/10/2023 COMPR EHENS MENDY METAB OLIC PANEL chloride 100 mmol/ L 98-107 Not Available [facility] (Lab) [address] [place], [address], 09/10/2023 19:52:02 09/10/2009/10/2023 COMPR EHENS MENDY METAB OLIC PANEL carbon dioxide 31 mmol/ L 22-30 high Not Available [facility] (Lab) [address] [place], [address], 09/10/2023 19:52:02 09/10/2009/10/2023 COMPR EHENS MENDY METAB OLIC PANEL anion gap 11.9 mmol/ L 14-22 low Not Available [facility] (Lab) [address] [place], [address], 09/10/2023 19:52:02 09/10/2009/10/2023 COMPR EHENS MENYD METAB OLIC PANEL glucose 97 mg/dL 70-99 Not Available [facility] (Lab) [address] [place], [address], 09/10/2023 19:52:02 09/10/2009/10/2023 COMPR EHENS MENDY METAB OLIC PANEL BUN 25 mg/dL 8-19 high Not Available [facility] (Lab) [address] [place], [address], 09/10/2023 19:52:02 09/10/2009/10/2023 COMPR EHENS MENDY METAB OLIC PANEL creatinine 1.02 mg/dL 0.66-1 .25 Not Available [facility] (Lab) [address] [place], [address], 09/10/2023 19:52:02 09/10/2009/10/2023 COMPR EHENS MENDY METAB OLIC PANEL GFR 53 Refer ence Range : [place]os[place] ge GFR Healt hy Adult : >60 mL/mi n/1.7 3 m2 Chron ic Kidne y Disea se: 15-60 mL/mi n/1.7 3 m2 Kidne y Failu re: <15/m L/min /1.73 m2 www.n iddk. nih.g ov The MDRD study equat ion has not been valid ated in child aissatou <18 years of age; pregn ant women ; the elder ly >85 years of age; or in some racia l or ethni c subgr oups, such as Hispa nics. Outsi de the valid ated rafael eters , estim ated GFR is less accur ate, requi ring clini mercedes judgm ent on a case- by-ca se basis . Clini mercedes inter preta tion for other races and ages must be made by the clini brett. The MDRD study equat ion has not been valid ated for the evalu ation of serum creat inine relat ed to nutri sandrita l statu s or medic ation usage . For perso ns <18 years of age, a pedia tric GFR calcu lator is avail able on the [facility] websi te: https ://aashish biggs.terrence fuller/pr migel moonal s/kdo qi/gf r_cal culat or Not Available [facility] (Lab) [address] [place], [address], 09/10/2023 19:52:02 09/10/2009/10/2023 COMPR EHENS MENDY METAB OLIC PANEL alkaline phosphatase 59 U/L 38-126 Not Available [facility] (Lab) [address] [place], [address], 09/10/2023 19:52:02 09/10/2009/10/2023 COMPR EHENS MENDY METAB OLIC PANEL alanine aminotransfe rase 23 U/L 0-35 Not Available [facility] (Lab) [address] [place], [address], 09/10/2023 19:52:02 09/10/2009/10/2023 COMPR EHENS MENDY METAB OLIC PANEL aspartate aminotransfe rase 33 U/L 15-37 Not Available [facility] (Lab) [address] [facility] [place], [address], 09/10/2023 19:52:02 09/10/2009/10/2023 COMPR EHENS MENDY METAB OLIC PANEL bilirubin, total 0.40 mg/dL 0.20-1 .30 Not Available [facility] (Lab) [address] [place], [address], 09/10/2023 19:52:02 09/10/2009/10/2023 COMPR EHENS MENDY METAB OLIC PANEL calcium 10.2 mg/dL 8.4-10 .2 Not Available [facility] (Lab) [address] [place], [address], 09/10/2023 19:52:02 09/10/2009/10/2023 COMPR EHENS MENDY METAB OLIC PANEL total protein 7.3 g/dL 6.3-8. 2 Not Available [facility] (Lab) [address] [place], [address], 09/10/2023 19:52:02 09/10/2009/10/2023 COMPR EHENS MENDY METAB OLIC PANEL albumin 4.4 g/dL 3.0-4. 4 Not Available [facility] (Lab) [address] [place], [address], 09/10/2023 19:52:02 09/10/2009/10/2023 COMPR EHENS MENDY METAB OLIC PANEL globulin 2.9 g/dL 2.6-4. 2 Not Available [facility] (Lab) [address] [place], [address], 09/10/2023 19:52:02 09/10/20 09/10/2023 COMPR EHENS MENDY METAB OLIC PANEL A/G ratio 1.5 ratio 1.0-2. 0 Not Available [facility] (Lab) [address] [place] [address], [address], 09/10/2023 19:52:02 09/10/20 23 09/10/2023 LIPID PANEL cholesterol 168 mg/dL 140-19 9 NIH NEGRO NSUS RECOM MENDA TION FOR TANNA STERO L: ADULT CHILD LOW RISK: <200 <170 BORDE RLINE : <200- 239 ----- HIGH RISK: >240 >200 Not Available [facility] (Lab) [address] [place] [address], [address], 09/10/2023 19:52:06 09/10/2009/10/2023 LIPID PANEL triglyceride s 89 mg/dL 0-150 NIH NEGRO NSUS REPOR T RECOM MENDA TION FOR TRIGL YCERI VIVEK: ADULT CHILD LOW RISK: <150 ----- BODER LINE: 150-1 99 ----- HIGH RISK: >200 ----- Not Available [facility] (Lab) [address] [place] [address], [address], 09/10/2023 19:52:06 09/10/2009/10/2023 LIPID PANEL HDL cholesterol 77 mg/dL 40- Not Available [facility] (Lab) [address] [place] [address], [address], 09/10/2023 19:52:06 09/10/2009/10/2023 LIPID PANEL LDL cholesterol, calculated 73 mg/dL 0-130 NIH NEGRO NSUS REPOR T RECOM MENDA TIONS FOR LDL: ADULT CHILD LOW RISK <130 <110 (OPTI MAL LDL) <100 ----- BORDE RLINE : 130-1 59 ----- HIGH RISK: >160 >130 A TRIGL YCERI DE RESUL T >400 INVAL IDATE S THE CALCU LATIO N FOR LDL FRACT IONAT ION - THE LDL RESUL T WILL NOT BE REPOR [place]. Not Available [facility] (Lab) [address] [place], [address], 09/10/2023 19:52:06 09/10/20 23 09/10/2023 VITAM IN D 25-HY DROXY vd25oh 32.2 NG/mL 30-100 Vitam in D Statu s: Defic ient: <20 ng/mL Insuf ficie nt: 20-29 ng/mL Suffi cient : 30-10 0 ng/mL Not Available [facility] (Lab) [address] [place], [address], 09/10/2023 19:59:20 04/07/20 23 bone densi ty [facility] [address] [place] [address] [phone] Patigary t Name: DELROY REBOLLEDO Access ion #: [id number] Sex: F : 1944 0 Locati on: RA2 Attend ing Physic agata: ISRAEL HECTOR Orderi ng Physic agata: ISRAEL HECTOR Exam Date: 023 12:54 PM Exam Name: XR DEXA AXIAL/ HIP/PE LVIS/S PINE Admitt ing Diagno sis(es ): RADIOL OGY REPORT - FINAL EXAM: XR DEXA AXIAL/ HIP/PE LVIS/S PINE HISTOR Y: post menopa usal COMPAR TANVIR: 2019 TECHNI QUE: TECHNI QUE: Dual energy x-ray of absorp tion examin ation of the bilate ral hips and lumbar spine in AP projec tion was perfor med. FINDIN GS: Lumbar Spine (L1-L4 ): The mean bone minera l densit y is 1.051 g/cm2 hydrox yapati te, correl ating with a T-scor e of -1.2 repres enting a 3.2% decrea se from the prior study. Bilate ral hips: The mean bone minera l densit y is 0.745 g/cm2 calciu m Page 1 of 2 [facility] Patien t Name: DELROY REBOLLEDO Access ion #: [id number] Sex: F : 1944 0 Exam Date: 12:54 PM Exam Name: XR DEXA AXIAL/ HIP/PE LVIS/S PINE Admitt ing Diagno sis(es ): hydrox yapati te, correl ating with a T-scor e of -2.1 repres enting a 1.8% decrea se from the prior study. IMPRES DONOVAN: 1. The patien t's lumbar spine T-scor e is consis tent with mild osteop enia. 2. The patien t's bilate ral hip T-scor e is consis tent with modera te to severe osteop enia. Accord ing to the World Health Organi zation , T-scor e values greate r than -1.0 are normal , values betwee n -1.0 and -2.5 are catego rized as osteop enia, T-scor e of -2.5 or more are catego rized as osteop orosis . Create d and electr onical ly signed by: Eitan jesus MD Signed Date: 1:47 PM (CT) Dictat ed by: Eitan jesus MD DD: 1:47 PM (CT) DT: 1:47 PM (CT) Page 2 of 2 [facility] (Imaging) [address] [place], [address], 09/10/2023 15:39:59 05/21/20 23 05/21/2020 DEXA, axial skele ton No observ ation record ed. BARCODE Not Available 2022 15:14:32 Result Notes None recorded. Problems Name Problem SNOMED Code Status Onset Date Resolution Date Notes Provider Name and Address Organization Details Recorded Time Osteopenia 949798494 Active 2018 Not Available [facility] 3 05:48:41 Elevated blood-pressur e reading without diagnosis of hypertension 787432880 Active Not Available [facility] 3 05:48:41 Rosahallea 054436436 Active 2021 Not Available [facility] 3 05:48:41 Pain of shoulder region 90198179 Active Not Available [facility] 3 05:48:41 Hyperlipidemi a 77004631 Active 2017 Not Available [facility] 3 05:48:41 Essential hypertension 62323210 Active 2017 Not Available [facility] 3 05:48:41 Problem Notes None recorded. Procedures Surgical History Date Name Laterality Status Provider Name and Address Organization Details Recorded Time 04/02/20 Medicare Wellness CPT Code, subsequent completed Hollie Noel RN [place] [facility] 04/02/2023 10:53:33 09/10/20 Date of Last Colonoscopy completed Not Available [facility] 01/21/2023 05:12:30 09/04/20 20 Colonoscopy completed Not Available [facility] 01/22/20 05:12:32 05/21/20 20 Most Recent Bone Density completed Not Available [facility] 01/21/2023 05:12:30 05/23/20 14 Dilation and curettage completed Not Available [facility] 01/21/2023 05:12:32 Tubal Ligation completed Not Available [facility] 01/21/2023 05:12:32 Imaging Results Imaging Date Name Status LastModified by Organiz ation Details LastModified Time 04/07/[address] [facility] (Imaging) [address] [place], [address], 09/10/2023 15:39:59 05/21/2020 DEXA, axial skeleton completed BARCODE Information not available 05/21/2023 15:14:32 Procedure Notes None recorded. Medical Equipment None Reported. Allergies No known drug allergies Medications Name Sig Start Date Stop Date Status Note LastModified by Organization Details LastModified Time clindamyc in HCl 300 mg capsule active Not Available Not Available Not Available atorvasta tin 10 mg tablet TAKE 1 TABLET BY MOUTH DAILY active Not Available Not Available No t Available fluconazo le 200 mg tablet 09/14 completed Not Available Not Available Not Available alendrona te 70 mg tablet TAKE 1 TABLET BY MOUTH WEEKLY active Not Available Not Available No t Available travopros t 0.004 % eye drops INSTILL 1 DROP IN EACH EYE EVERY EVENING active Not Available Not Available No t Available peg-elect rolyte solution 420 gram oral solution active Not Available Not Available Not Available omeprazol e 40 mg capsule,d elayed release Take 1 capsule( s) every day by oral route. 09/06 completed Not Available Not Available Not Available lisinopri l 10 mg tablet TAKE 1 TABLET BY MOUTH DAILY 09/11 completed Not Available Not Available Not Available etodolac 400 mg tablet Take 1 tablet twice a day by oral route. active Not Available Not Available No t Available ergocalci ferol (vitamin D2) 1,250 mcg (50,000 unit) capsule Take 1 capsule every week by oral route. active Not Available Not Available No t Available lisinopri l 10 mg-hydroc hlorothia zide 12.5 mg tablet TAKE 1 TABLET BY MOUTH DAILY active Not Available Not Available No t Available methylpre dnisolone 4 mg tablets in a dose pack 08/26 completed Not Available Not Available Not Available metronida zole 0.75 % topical gel APPLY SMALL AMOUNT TOPICALL Y TO THE AFFECTED AREA TWICE DAILY active Not Available Not Available No t Available loratadin e 10 mg tablet TK 1 T PO D 09/14 completed Not Available Not Available Not Available dorzolami de 2 % eye drops INSTILL 1 DROP IN BOTH EYES TWICE DAILY active Not Available Not Available No t Available Vitamin D 2020 active Not Available Not Available Not Avai lable Nexium OTC 24 hr tab daily 09/05 completed Not Available Not Available Not Available Calcium 500 2015 active Not Available Not Available Not Avai lable hydrochlo rothiazid e 12.5 mg tablet TAKE 1 TABLET BY MOUTH ONCE DAILY 04/02 completed combined Not Available Not Available Not Available Prevnar 13 (PF) 0.5 mL intramusc ular syringe active Not Available Not Available Not Available Prolia 60 mg/mL subcutane ous syringe Inject 1 mL by subcutan eous route. active Not Available Not Available No t Available Probiotic 2020 active Not Available Not Available Not Avai lable Suprep Bowel Prep Kit 17.5 gram-3.13 gram-1.6 gram oral solution active Not Available Not Available Not Available Simbrinza 1 %-0.2 % eye drops,lulú pension active Not Available Not Available Not Available Fluarix Quad 3133-3057 (PF) 60 mcg (15 mcg x 4)/0.5 mL IM syringe INJECT 0.5 ML INTRAMUS CULARLY DIRECTED . active Not Available Not Available No t Available Fluzone High-Dose (PF) 180 mcg/0.5 mL intramusc ular syringe active Not Available Not Available Not Available Fluad 2018- 65yr up(PF)45 mcg(15 mcgx3)/0. 5 mL intramusc ular syringe 05/15 completed Not Available Not Available Not Available Fluzone High-Dose Quad (PF) 240 mcg/0.7 mL IM syringe ADM 0.7ML IM UTD active Not Available Not Available No t Available BinaxNOW COVID-19 Ag Self Test kit TEST DIRECTED TODAY 09/11 completed Not Available Not Available Not Available Vitals Date Recorded Body mass index (BMI) Body height Pain severity - 0-10 verbal numeric rating [Score] - Reported Heart rate Body temperature Body weight Systolic blood pressure Diastolic blood pressure Provider Name and Address Organization Details Last Updated DateTime 1 23.2 kg/m2 160.02 cm 0 80 /min 97.2 [degF] 76442.6 g 140 mm[Hg] 80 mm[Hg] Not Available [facility] 3 05:16:16 Date Recorded Body mass index (BMI) Body height Heart rate Body temperature Body weight Systolic blood pressure Diastolic blood pressure Provider Name and Address Organization Details Last Updated DateTime 2 23.4 kg/m2 160.02 cm 62 /min 96.5 [degF] 01881.1 9 g 122 mm[Hg] 70 mm[Hg] Not Available [facility] 3 05:16:16 Date Recorded Body height Heart rate Body temperature Body weight Systolic blood pressure Diastolic blood pressure Provider Name and Address Organization Details Last Updated DateTime 2 160.02 cm 75 /min 98.4 [degF] 23527.0 1 g 120 mm[Hg] 74 mm[Hg] Not Available [facility] 3 05:16:16 Date Recorded Body height Body mass index (BMI) Body weight Body temperature Heart rate Systolic blood pressure Diastolic blood pressure Provider Name and Address Organization Details Last Updated DateTime 3 160.02 cm 23.4 kg/m2 13225.1 9 g 97.8 [degF] 70 /min 116 mm[Hg] 82 mm[Hg] BENJAMIN Bagley [facility] 3 10:43:42 Date Recorded Pain severity - 0-10 verbal numeric rating [Score] - Reported Provider Name and Address Organization Details Last Updated DateTime 04/02/2023 0 Hollie Noel RN [facility] 04/02/2023 10:54:08 Date Recorded Body height Body mass index (BMI) Body weight Body temperature Heart rate Systolic blood pressure Diastolic blood pressure Provider Name and Address Organization Details Last Updated DateTime 3 160.02 cm 23 kg/m2 21863.0 1 g 97.4 [degF] 72 /min 122 mm[Hg] 76 mm[Hg] BENJAMIN Bagley [facility] 3 15:23:51 Social History Question Answer Notes LastModified by Organizat ion Details LastModified Time Tobacco Smoking Status Former Smoker quit at age 28 [facility] 09/10/2023 15:17:48 Do You Have An Advance Directive? No [id number] Information not available 01/21/2023 How Many Years Have You Consumed Alcohol? 50 Information not available 09/10/2023 Are You Blind Or Do You Have Difficulty Seeing? No Information not available 09/10/2023 What Is Your Level Of Caffeine Consumption? Moderate [id number] Information not available 01/21/2023 How Much Tobacco Do You Chew? None [id number] Information not available 01/21/2023 In The 14 Days Before Symptom Onset, Have You Had Close Contact With A Laboratory-confi rmed COVID-19 While That Case Was Ill? No Information not available 09/10/2023 In The 14 Days Before Symptom Onset, Have You Had Close Contact With A Person Who Is Under Investigation For COVID-19 While That Person Was Ill? No Information not available 09/10/2023 Are You Deaf Or Do You Have Serious Difficulty Hearing? No Information not available 09/10/2023 What Type Of Diet Are You Following? REGULAR [id number] Information not available 01/21/2023 Which Illicit Or Recreational Drugs Have You Used? None Information not available 09/10/2023 What Is The Highest Grade Or Level Of School You Have Completed Or The Highest Degree You Have Received? [id number] Information not available 09/10/2023 Have There Been Any Changes To Your Family Or Social Situation? No Information not available 09/10/2023 Are There Any Guns Present In Your Home? Yes Information not available 09/10/2023 Do You Use Insect Repellent Routinely? Yes Information not available 09/10/2023 Where Do You Live? [facility] Information not available 09/10/2023 Presence Of Domestic Violence No Information not available 04/02/2023 Guns Present In The Home? Yes Information not available 04/02/2023 Are You Able To Care For Yourself? Yes Information not available 04/02/2023 Are You Blind Or Do Yo Have Difficulty Seeing? No Information not available 04/02/2023 Are You Deaf Or Do You Have Serious Difficulty Hearing? No Information not available 04/02/2023 General Stress Level? Low Information not available 04/02/2023 Live Alone Of With Others? With Others Information not available 04/02/2023 Do You Have A Medical Power Of Clinical Nurse Educator? No Information not available 09/10/2023 What Was The Date Of Your Most Recent Tobacco Screening? 09/10/2023 [id number] Information not available 09/10/2023 Have You Ever Been Counseled For Unhealthy Alcohol Use? No Information not available 09/10/2023 Do You Have Any Pets? No Information not available 09/10/2023 What Is Your Relationship Status? [id number] Information not available 01/21/2023 Do You Use Your Seat Belt Or Car Seat Routinely? Yes Information not available 09/10/2023 Do You Have Smoke And Carbon Monoxide Detectors In Your Home? Yes Information not available 09/10/2023 Are You Passively Exposed To Smoke? No Information not available 09/10/2023 Are There Any Smokers In Your House? No Information not available 09/10/2023 How Much Tobacco Do You Smoke? No [id number] Information not available 01/21/2023 Do You Use Sunscreen Routinely? Yes Information not available 09/10/2023 Has Tobacco Cessation Counseling Been Provided? No Information not available 09/10/2023 Have You Recently Traveled Abroad? No Information not available 09/10/2023 Do You Have Any Dietary Restrictions? No Information not available 09/10/2023 How Many Days In The Past Year Have You Consumed 4 Or More Drinks? 0 Information not available 09/10/2023 Sex: Female Functional Status Question Answer Note LastModified by Organizat ion Details LastModified Time Do you or have you ever used smokeless tobacco? Never used smokeless tobacco [id number] Information not available 01/21/2023 Do you have difficulty walking or climbing stairs? No Information not available 09/10/2023 Do you have transportation difficulties? No Information not available 09/10/2023 Are you able to care for yourself? Yes Information n ot available 09/10/2023 Do you have difficulty dressing or bathing? No Information not available 09/10/2023 Do you or have you ever used e-cigarettes or vape? Never used electronic cigarettes Information not available 09/10/2023 What is your exercise level? Moderate [id number] Information not available 01/21/2023 Do you use any illicit or recreational drugs? No Information not available 09/10/2023 Do you or have you ever used any other forms of tobacco or nicotine? No Information not available 09/10/2023 What is your level of alcohol consumption? Moderate Information not available 04/02/2023 Are you able to walk? YESWOREST Information not available 09/10/2023 Do you have difficulty doing errands alone? No Information not available 09/10/2023 What is your occupation? retired Information not available 09/10/2023 Mental Status Question Answer Note LastModified by Organizat ion Details LastModified Time Do you feel stressed (tense, restless, nervous, or anxious, or unable to sleep at night)? [id number] Information not available 09/10/2023 Do you have difficulty concentrating, remembering or making decisions? No Information no t available 09/10/2023 Family History Relationship Description Onset Age of this Age Resolved Age Notes LastModified by Organization Details LastModified Time Mother Malignant neoplasm of lung 85 cyahl Not available 2022 15:17:43 Mother Epilepsy cyahl Not available 1 15:17:43 Mother Hypertensive disorder [id number] Not available 01/21/2023 05:12:36 Father Hodgkin's disease (clinical) 49 cyahl Not available 09/10 15:17:43 Maternal Grandmother Malignant neoplasm of lung cyahl Not available 2022 15:17:43 Son Diverticulit is cyahl Not available 2022 15:17:43 Medical History Condition Response NERVE DISEASE N BLINDNESS N RHEUMATIC FEVER N KIDNEY STONES N BLADDER PROBLEMS N MRSA N OTHER # 1 Y POLIO N LUNG DISEASE/DISORDER N COPD N RADIATION / CHEMOTHERAPY N Other # 2 N BLOOD DISEASES N EAR OR HEARING PROBLEMS N MUMPS N SHINGLES N BOWEL PROBLEMS N DEPRESSION (INCLUDING POST ) N STROKE/TIA N ULCERS N BENIGN PROSTATIC HYPERPLASIA N MEASLES N MYOCARDIAL INFARCTION N OBESITY N GERD/NAUSEA N ANEURYSM N URINARY/BLADDER/KIDNEY PROBLEMS N CORONARY ARTERY DISEASE (CAD) N ADDICTION CONCERNS N ENDOMETRIOSIS N Impotence N USE OF BLOOD THINNERS N SKIN PROBLEMS N GASTROINTESTINAL DISORDER N PERIPHERAL VASCULAR DISEASE N MUSCLE,JOINT OR BONE PROBLEMS N GASTROINTESTINAL BLEEDING N BLOOD CLOTS N ASTHMA N CATARACTS N ERECTILE DYSFUNCTION N VARICOSITIES N GI PROBLEMS N Low Testosterone N INFERTILITY N AIDS/HIV N CHEMOTHERAPY / RADIATION N LIVER DISEASE N MALE HYPOGONADISM N HYPERTENSION Y Deficiency N TOURETTE'S N ANXIETY DISORDER N BLOOD TRANSFUSION N ANEMIA/BLOOD DISORDER N CHRONIC EAR INFECTIONS N BRONCHITIS N TUBERCULOSIS N GLAUCOMA Y FOOT PROBLEM N DIVERTICULITIS N SLEEP APNEA N CHICKENPOX N INFECTIOUS DISEASE N HEART ARRHYTHMIA N PROSTATE N INSOMNIA N HIGH CHOLESTEROL / HYPERLIPIDEMIA Y HYPERTHYROIDISM N EYE PROBLEMS N EDEMA N CHRONIC PAIN SYNDROME N HYPOTHYROIDISM N CAROTID BLOCKAGE N CONSTIPATION N BACK / NECK PROBLEMS N HAVE YOU BEEN HOSPITALIZED OR SEEN IN [facility] IN THE PAST YEAR ? N ATHEROSCLEROSIS N BREAST PROBLEMS N DIALYSIS N ECZEMA N OSTEOPOROSIS N ARTHRITIS N APPENDICITIS N DIABETES, TYPE N BAD TEETH N ENT N HEARTBURN / REFLUX N AUTISM SPECTRUM DISORDER (ASD) N HEPATITIS / LIVER DISEASE N GOUT N SLEEP DISORDER N ALZHEIMER'S DISEASE N Brain Problems N HERPES N DEMENTIA N HEADACHES/MIGRAINES N SEIZURES/EPILEPSY N VASCULAR DISEASE N PACEMAKER N Blood Disorder N DIZZINESS N HEART DISEASE/HEART PROBLEMS N KIDNEY DISEASE N MULTIPLE SCLEROSIS N CARDIAC ARRHYTHMIA N CANCER: SPECIFY N ATRIAL FIBRILLATION N Gall Stones N PULMONARY EMBOLISM N AUTOIMMUNE DISEASE N Gynecological History Statement/Question Response Date of Last Mammogram 04/11/2021 Date of Last Colonoscopy 09/10/2020 Most Recent Bone Density 05/21/2020 Obstetrics History GPAL:G 0 P 0 0 0 0 Immunizations Vaccine Type Date Status Note Provider Nam e and Address Organization Details Recorded Time COVID-19, mRNA, LNP-S, PF, 100 mcg/0.5mL dose or 50 mcg/0.25mL dose 1 completed Not Available [facility] 09/11/2023 05:48:41 Influenza, split virus, quadrivalent, preservative 0 completed Not Available [facility] 09/11/2023 05:48:41 Influenza, split virus, quadrivalent, preservative 9 completed Not Available [facility] 09/11/2023 05:48:41 Influenza, high-dose, trivalent, PF 7 completed Not Available [facility] 09/11/2023 05:48:41 Pneumococcal conjugate PCV 13 7 completed Not Available [facility] 09/11/2023 05:48:41 Influenza, high-dose, quadrivalent, PF 2 completed Not Available [facility] 09/11/2023 05:48:41 COVID-19, mRNA, LNP-S, PF, 100 mcg/0.5mL dose or 50 mcg/0.25mL dose 1 completed Not Available [facility] 09/11/2023 05:48:41 influenza, unspecified formulation 7 completed Not Available [facility] 09/11/2023 05:48:41 pneumococcal, unspecified formulation 7 completed Not Available [facility] 09/11/2023 05:48:41 Influenza, high-dose, trivalent, PF 4 completed Not Available [facility] 09/11/2023 05:48:41 Influenza, high-dose, quadrivalent, PF 1 completed Not Available [facility] 09/11/2023 05:48:41 Influenza, high-dose, trivalent, PF 8 completed Not Available [facility] 09/11/2023 05:48:41 pneumococcal polysaccharide PPV23 3 completed Catrachita Hector MD [address] [place] [address], [phone], [facility] 04/04/2023 15:45:37 Past Encounters Encounter ID Performer Location Encounter Start Date Encounter Closed Date Diagnosis/Indication Diagnosis SNOMED-CT Code Diagnosis ICD10 Code Diagnosis Note [id number] Catrachita Hector MD [facility] Internal [facility] [place] [address] [place] [address] [place] [address] 04/02/2021 00:00:00 04/02/2021 22:47:09 [id number] Catrachita Hector MD [facility] Internal [facility] [place] [address] [place] [address] [place] [address] 09/05/2021 00:00:00 09/30/2021 21:58:46 [id number] Catrachita Hector MD [facility] Internal [facility] [place] [address] [place] [address] [place] [address] 04/10/2022 00:00:00 05/03/2022 17:05:44 [id number] Catrachita Hector MD [facility] Internal [facility] [place] [address] [place] [address] [place] [address] 09/11/2022 00:00:00 09/11/2022 21:08:14 [id number] Catrachita Hector MD [facility] Internal Med [place] [address] [place] [address] [place] [address] 04/02/2023 10:32:26 04/02/2023 11:17:35 Essential hypertension 61142924 I10 Hyperlipidemia 71466969 E78.5 Rosacea 838043768 L71.9 Adult heal th examination 027377957 Z00.00 Screening for disorder 585067677 Z13.9 Postmenopausal state 764 55435 Z78.0 Administra tion of pneumococcal vaccine 61096524 Z23 [id number] Catrachita Hector MD [facility] Rosie cosby [address] [facility] [place] [address] 09/10/2023 15:17:10 09/10/2023 15:38:00 Essential hypertension 52368535 I10 Osteopenia 375076782 M85 .80 Screening mammography 24 611069 Z12.31 Hyperlipidemia 08141839 E78.5 Health Concerns Section Related Observation LastModified by Organization Detai ls LastModified Time None Recorded Concern Status LastModified by Organization Details LastModified Time None Recorded Advance Directives Directive N: Payers Encounter Date Sequence Insurance Name Policy Number Policy Aviles Covered Member ID Aviles Member ID Guarantor Name 04/02/2023 1 [employer] (MEDICARE REPLACEMENT PPO) [id number] Delroy K Pile [id number] Delroy K Pile 09/10/2023 1 [employer] (MEDICARE REPLACEMENT PPO) [id number] Delroy K Pile [id number] Delroy K Pile Notes Date Note Type Note Provider Name and Address Organization Details Recorded Time 04/02/2023 text/html HLD watching red meatRosacea doing wellHTN no CP/HAMAW completed Catrachita Hector MD [address], [place], [address], [employer] 04/04/2023 15:48:50 09/10/2023 text/html HLD watching red meatRosacea doing wellHTN no CP/HAOsteopenia does not want to start Prolia Catrachita Hector MD [address], [place], [address], [employer] 09/10/2023 21:18:50 OBGyn Episode No OBEpisode recorded.
--- OUTSIDE RECORDS SUMMARY | 2025-04-03 09:52 | XMS_ITS | Encounter Summary ---
Author Organization [facility] Address [address] [place] [address] Care Team Providers Care [employer] Name Role Phone Esteban Fisher MD Primary Care Provider [phone] Encounter Details Date Type Department Care Team (Late st Contact Info) Description 08/01/2020 Lab Requisition [facility] [address] [place] [address] Ric Dial MD [address] [place] [address] Social History Tobacco Use Types Packs/Day Years Used Date Smoking Tobacco: Former Alcohol Use Standard Drinks/Week Comments Yes 0 (1 standard drink = 0.6 oz pur e alcohol) Comments Unknown Sex and Gender Information Value Date Recorded Sex Assigned at Not on file Legal Sex Female 5:38 PM [employer] Gender Identity Not on file Sexual Orientation Not on file documented as of this encounter Plan of Treatment Not on file documented as of this encounter Procedures Procedure Name Priority Date/Time Associated Diagnosis Comments DERMATOPATHOLOGY Routine 07/31/2020 12:0 0 AM CDT documented in this encounter Results * DERMATOPATHOLOGY (07/31/2020 12:00 AM CDT) Case Report Dermatopathology Report Case: [id number] Authorizing Provider: Ric Dial MD Collected: 07/31/2020 12:00 AM Ordering Location: [facility] Received: 08/01/2020 12:36 PM Pathologist: Ana María Klein MD Specimen: Skin, above left mid clavicle 0 1:49 PM CDT DERMATOPATHOLOGY LABORATORY Final Diagnosis Specimen A. SKIN, above left mid clavicle: BASAL CELL CARCINOMA, NODULAR TYPE (C44.519) 0 1:49 PM CDT DERMATOPATHOLOGY LABORATORY Clinical History R/O SCC, HAK. 0 1:49 PM CDT DERMATOPATHOLOGY LABORATORY Gross Description Specimen A: Received is one formalin filled container labeled with the patient's name and designated above left mid clavicle. The specimen consists of a curettage and desiccation biopsy measuring [id number]. Jar 0. 0 1:49 PM CDT DERMATOPATHOLOGY LABORATORY Microscopic Description Specimen A. SKIN, above left mid clavicle: Within the dermis there are aggregates of basaloid cells with a high nuclear to cytoplasmic ratio and peripheral palisading. 0 1:49 PM CDT DERMATOPATHOLOGY LABORATORY Disclaimer An external and internal positive and negative controls are appropriate for the histochemical, immunohistochemical and immunofluorescence stain(s) in this case (if any), except where stated explicitly. The performance characteristics of the stain(s) cited in this report were developed and its performance characteristic determined by the Dermatopathology Laboratory at [facility], directed by Dr. Zachary Bravo. These tests need not be, and therefore are not, approved by the [place] Food and Drug Administration. The tests are used for clinical purposes. Billing Codes Specimen Charges Stain Charges 94290 1 0 1:49 PM CDT DERMATOPATHOLOGY LABORATORY Embedded Images 0 1:49 PM CDT DERMATOPATHOLOGY LABORATORY Pathology/Cytolog y TISSUE SPECIMEN FROM SKIN / Unknown 07/31/2020 08/01/2020 12:36 PM CDT us Ric Dial MD LAB - PATHOLOGY/CYTOLOGY ORD ERABLES Final Result DERMATOPATHOLOGY LABORATORY [facility] - Department of Dermatology [address] [phone] documented in this encounter Visit Diagnoses Not on filedocumented in this encounter Care Teams [employer] Relationship Specialty Start Date End Date Esteban Fisher MD PCP - General 02/28/14 documented as of this encounter
--- OUTSIDE RECORDS SUMMARY | 2025-04-03 09:52 | XMS_ITS | Clinical Summary ---
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
[2025-04-03 13:56] LABS: Hematocrit 37.4 % (37.0-47.0); Mean Corpuscular HGB Conc 32.1 g/dl (32-36); Mean Corpuscular Hemoglobin 30.5 pg (26-34); Mean Corpuscular Volume 95.2 fl (80-100); Mean Platelet Volume 10.4 fl (7.4-10.4); Platelet Count Result 229 k/mm3 (150-375); Red Blood Count 3.93 M/mm3 (4.2-5.4); Red Cell Distribution Width 12.4 % (11.5-14.5); White Blood Count 6.1 K/mm3 (4.5-10.0)
[2025-04-03 15:53] LABS: Alanine Aminotransferase 33 U/L (6-35); Albumin Level 4.7 g/dL (3.5-5.1); Alkaline Phosphatase 80 U/L (38-126); Anion Gap 10 mmol/L (4-12); Aspartate Amino Transferase 50 U/L (14-36); Bilirubin,Total 0.3 mg/dL (0.2-1.3); Blood Urea Nitrogen 33 mg/dL (7-17); Calcium 9.7 mg/dL (8.4-10.2); Carbon Dioxide 25 mmol/L (22-30); Chloride 105 mmol/L (98-107); Cholesterol 164 mg/dL (0-200); Estimated Glomerular Filt Rate > 60; Glucose 89 mg/dL (65-110); HDL Direct 78 mg/dL; Potassium 3.7 mmol/L (3.4-5.0); Sodium 140 mmol/L (137-145); Triglycerides 60 mg/dL (<150)
[2025-04-03 16:04] LABS: LDL Cholesterol Direct 55 mg/dL
[2025-04-06 11:53] LABS: Vitamin D 1,25 (OH)2 Total 44 pg/mL (18-72); Vitamin D2 1,25 (OH)2 <8 pg/mL; Vitamin D3 1,25 (OH)2 44 pg/mL
== END 2025-04-03 09:46 | disposition home or self-care (01) ==
PROVIDERS: PCP Family Medicine; Visit Provider Family Medicine
DX: E78.5 Hyperlipidemia, unspecified (principal); I10 Essential (primary) hypertension; E55.9 Vitamin D deficiency, unspecified; Z79.899 Other long term (current) drug therapy
CPT/HCPCS: 36415; 80053; 80061; 82652; 84443; 85027

== ENCOUNTER 2025-06-16 14:11 | Outpatient (CLI) | payer MEDICARE, SELFPAY ==
--- NOTE | ~2025-06-16 | DEXA_ITS ---
Bone Density Report Name: DELROY REBOLLEDO Age: 80 Sex: Female Ethnicity: White Date of : 1945 Indication: postmenopausal; screening for osteoporosis; parental hip fracture; height loss; Referring Provider: Virgie Helton Study: Bone densitometry was performed. Exam Date: June 16, 2025 Accession number: [id number] Bone Density: Region BMD T-score Z-score Classification AP Spine(L1-L4) 0.858 -1.7 0.9 Osteopenia Femoral Neck (Left) 0.586 -2.4 -0.1 Osteopenia Total Hip (Left) 0.686 -2.1 -0.1 Osteopenia Femoral Neck (Right) 0.573 -2.5 -0.3 Osteoporosis Total Hip (Right) 0.696 -2.0 -0.1 Osteopenia Total Hip Mean 0.691 -2.1 -0.1 Osteopenia World Health Organization criteria for BMD impression classify patients as: Normal (T-score at or above -1.0), Osteopenia (T-score between -1.0 and -2.5), or Osteoporosis (T-score at or below -2.5). 10-year Fracture Risk: FRAX not reported because: Some T-score for Spine Total or Hip Total or Femoral Neck at or below -2.5 Clinical Information Provided by Patient: Parent has had a hip fracture Has used the following medications: HRT (i.e. estrogen/hormone therapy), Vitamin D, Calcium Patient maximum height was 63 Menopause Age: 57 Drinks caffeinated beverages Onset of menses at age 15 Number of children 2 Impression: The patient has osteoporosis, based on the Right Femoral Neck T-score. The patient has risk factors, including: parental hip fracture. Discussion: INCREASED RISK OF FRACTURE. BONE DENSITY IS UNDESIRABLY LOW AT ONE OR MORE SKELETAL SITES, CONSISTENT WITH POSTMENOPAUSAL OSTEOPOROSIS. This patient's lowest T-score meets the World Health Organization's (WHO) criteria for osteoporosis at one or more sites (T-score -2.5 or below). In untreated patients, the risk of osteoporotic fracture increases approximately two-fold for each 1.0 SD decrease in T-score. Low bone density is not the only risk factor for fracture; also consider factors such as patient's age, frailty or poor health, risk of falling, risk of injury, previous osteoporotic fracture, family history of osteoporosis, cigarette smoking, low body weight, etc. Not everyone with low bone mineral density has osteoporosis; osteomalacia and other metabolic bone disorders should also be considered. Patients who have osteoporosis should be evaluated for specific diseases and conditions (secondary causes) that may cause or contribute to bone loss. The [place] Association of Clinical Endocrinologists (AACE) and National Osteoporosis Foundation (NOF) recommend pharmacologic intervention for all postmenopausal women whose T-score is in this range. The patient should follow a healthful lifestyle (good nutrition with adequate calcium and vitamin D, and appropriate weight-bearing exercise). Follow-Up: Consider a repeat BMD and Vertebral Fracture Assessment (VFA) exam in 2 years or sooner if medically necessary, to reassess this patient's status. Reported by: NGOZI on 06/16/2025 2:37:00 PM. Reviewed, dictated and finalized at location A.
== END 2025-06-16 14:12 | disposition home or self-care (01) ==
PROVIDERS: PCP Family Medicine; Visit Provider Family Medicine
DX: M85.88 Other specified disorders of bone density and structure, other site (principal); M85.852 Other specified disorders of bone density and structure, left thigh; M85.851 Other specified disorders of bone density and structure, right thigh; M81.0 Age-related osteoporosis without current pathological fracture
CPT/HCPCS: 77080

== ENCOUNTER 2025-08-31 09:51 | Outpatient (CLI) | payer MEDICARE, SELFPAY ==
[2025-08-31 11:15] LABS: Hematocrit 37.4 % (37.0-47.0); Hemoglobin 12.0 g/dL (12.0-15.0); Mean Corpuscular HGB Conc 32.1 g/dl (32-36); Mean Corpuscular Hemoglobin 30.2 pg (26-34); Mean Corpuscular Volume 94.2 fl (80-100); Platelet Count Result 239 k/mm3 (150-375); Red Blood Count 3.97 M/mm3 (4.2-5.4); White Blood Count 6.5 K/mm3 (4.5-10.0)
[2025-08-31 11:35] LABS: Alanine Aminotransferase 34 U/L (6-35); Albumin Level 4.5 g/dL (3.5-5.1); Alkaline Phosphatase 74 U/L (38-126); Anion Gap 7 mmol/L (4-12); Aspartate Amino Transferase 36 U/L (14-36); Bilirubin,Total 0.4 mg/dL (0.2-1.3); Blood Urea Nitrogen 22 mg/dL (7-17); Calcium 9.9 mg/dL (8.4-10.2); Carbon Dioxide 27 mmol/L (22-30); Chloride 105 mmol/L (98-107); Cholesterol 150 mg/dL (0-200); Estimated Glomerular Filt Rate > 60; Glucose 95 mg/dL (65-110); HDL Direct 70 mg/dL; Potassium 3.9 mmol/L (3.4-5.0); Sodium 139 mmol/L (137-145); Total Protein 7.8 g/dL (6.3-8.2); Triglycerides 82 mg/dL (<150)
[2025-08-31 12:05] LABS: Thyroid Stimulating Hormone 1.610 uIU/mL (0.465-4.680)
[2025-09-06 06:08] LABS: 1,25-Dihydroxy, Vitamin D-2 <10 pg/mL (.); 1,25-Dihydroxy, Vitamin D-3 39 pg/mL (.); Total 1,25-Dihydroxy,Vitamin D 39 pg/mL (.)
== END 2025-08-31 09:52 | disposition home or self-care (01) ==
LOC: ANHGOSHLAB 09:52
PROVIDERS: PCP Family Medicine; Visit Provider Family Medicine
DX: E78.5 Hyperlipidemia, unspecified (principal); Z79.899 Other long term (current) drug therapy; I10 Essential (primary) hypertension; E55.9 Vitamin D deficiency, unspecified
CPT/HCPCS: 36415; 80053; 80061; 82652; 84443; 85027

== ENCOUNTER 2025-09-05 07:00 | Outpatient (CLI) | payer MEDICARE, SELFPAY ==
--- NOTE | ~2025-09-05 | MM_ITS ---
EXAMINATION: MM screening makenna BI w kannan HISTORY: Screening TECHNIQUE: Craniocaudal and mediolateral oblique 3-D tomosynthesis images were obtained and synthetic 2-D images were generated. CAD analysis was submitted and interpreted. COMPARISON: 09/02/2022 BREAST PARENCHYMAL COMPOSITION: There are scattered areas of fibroglandular density. FINDINGS: There is no evidence of suspicious mass, calcification, or architectural distortion to suggest malignancy. There has been no suspicious interval change. IMPRESSION: 1. No mammographic evidence of malignancy. Recommend routine screening mammography in one year. BI-RADS Category 2: Benign finding(s) Reviewed, dictated and finalized at location Q. IMPRESSION: 1. No mammographic evidence of malignancy. Recommend routine screening mammogra phy in one year. BI-RADS Category 2: Benign finding(s)
== END 2025-09-05 07:01 | disposition home or self-care (01) ==
LOC: MICIMG 07:00
PROVIDERS: PCP Family Medicine; Visit Provider Family Medicine
DX: Z12.31 Encounter for screening mammogram for malignant neoplasm of breast (principal)
CPT/HCPCS: 77063; 77067